=== PATIENT | female | born 1995 ===

== ENCOUNTER 2017-12-21 17:06 | Day surgery (SDC) | payer OTHER ==
[2017-12-21 18:11] VITALS: BMI 30.4
--- NOTE | 2017-12-21 19:11 | PDOC.FPROB ---
FMR OB H&P: HPI - History of Present Illness Chief Complaint: CTX History of Present Illness: This is a 22 yo F presenting today with CTX. Pt has a hx of SAB on ASA and lovenox during this that was stopped last week. Pt endorses CTX since midnight last night that are occuring every 10-20 min. She endorses (+) FM , loss of mucus mixed with blood. Endorses having sexual intercourse earlier today. States she had some swelling in legs that has improved over the last week. The patient denies headache, vision changes, SOB, abdominal pain, fever, NVD. Primary Care Physician: Viktor FMR OB H&P: Current - Care : 6 Para: 1041 Gestational age: 37 - OB Labs Blood type: AB RH: positive HIV: negative RPR: negative HepBsAg: negative Rubella: immune 1 hour gtt: 130 A1c: 4.7 GBS: positive H&H: 9.3/30.2 FMR OB H&P: History - Past Medical History PMH: none - OB History OB History: 1. 04/20/2014 - SAB with D&C 2. 02/17/2015 - Complete SAB 3. 04/20/2015 - Complete SAB 4. 05/15/2016 - placed on lovenox and ASA during 5. 01/12/2017 - complete SAB - Surgical History Sx History: none - Social History Social History: denies tobacco, alcohol or drug use FMR OB H&P: Medications - Current Home Medications: Medication Instructions Recorded Confirmed Type Aspirin [Aspirin Chewable Tablet] 81 mg PO DAILY 12/21/17 12/21/17 History Enoxaparin Sodium [Lovenox] 400 mg IM DAILY 12/21/17 12/21/17 History Ferrous Fumarate/Ascorbic Acid 1 tab PO DAILY 12/21/17 12/21/17 History [Gisela-Sequels 65-25 mg Caplet] Folic Acid 800 mcg PO DAILY 12/21/17 12/21/17 History Enzbdmar03/Iron/Folic/Docusate 1 tab PO DAILY 12/21/17 12/21/17 History [Citranatal Rx] Allergies/Adverse Reactions: Allergies Allergy/AdvReac Type Severity Reaction Status Date / Time No Known Allergies Allergy Verified 12/21/17 17:54 FMR OB H&P: ROS - Review of Systems General: denies: fever/chills Eyes: denies: vision changes, double vision, scotomas, floaters Cardiovascular: denies: chest pain, palpitation Respiratory: denies: shortness of breath Gastrointestinal: denies: abdominal pain, nausea, vomiting, diarrhea, constipation Genitourinary (Female): reports: vaginal bleeding, contractions. denies: incontinence, dysuria, hematuria, polyuria, vaginal discharge, vaginal pressure Musculoskeletal: reports: swelling Neurologic: denies: headache Integumentary: denies: itching, rash FMR OB H&P: Vital Signs - Heart Tones Baseline: 130 Variability: moderate Acceleration: present Deceleration: absent Category: category 1 [place] contractions every: one every 20 min or so FMR OB H&P: Physical Exam - Physical Exam General: NAD, awake, alert and oriented HEENT: normocephalic and atraumatic, EOMI, MMM, grossly normal vision, grossly normal hearing Neck: FROM Chest: non-tender to palpation, no lesions Heart: RRR, normal S1/S2, no murmurs/rubs/gallops General: CTAB, no respiratory distress, good air movement, no wheezing Abdomen: gravid, non-tender, bowel sound present Musculoskeletal: FROM in all four extremities Skin: no rash Lymphatic: no unusual bruising or bleeding, no purpura, no petechia Psychiatric: intact recent and remote memory, good judgement and insight FMR OB H&P: A/P - Problem List (1) High risk due to history of previous obstetrical problem in third trimester Current Visit: Yes Status: Acute Code(s): O09.293 - SUPRVSN OF PREG W POOR REPRODCTV OR OBSTET HX, THIRD TRI (2) IUP (intrauterine ), incidental Current Visit: Yes Status: Acute Code(s): Z34.90 - ENCNTR FOR SUPRVSN OF NORMAL , UNSP, UNSP TRIMESTER Disposition: This is a 22 yo @ 39 wks coming in for CTX. High risk , third trimester - FHT cat 1 - Cervical Check: /-1 @ 1830; soft, posterior - CTX every 20 min - encourage PO hydration - given labor return precautions: if CTX are occuring regularly every 4 min and painful, LOF, or decreased FM told to return to L&D Case discussed with Dr. Cha Discussion: Date/Time: 12/21/171858 This H&P was discussed with [] and [] who agree with the above documentation and plan. Attending Addendum - Attending Addendum Date/Time: 12/21/171940 I personally evaluated the patient and discussed the management with Dr. Enciso I agree with the History, Examination, Assessment and Plan documented above with any addition or exceptions noted below- 22 yo @ 39 weeks presented c/o ctx q20 minutes since last night. Denies any LOF, VB. (+) FM. Afebrile VSS Category 1 FHTs. SVE /-1/post/soft. Holland- ctx q5-10 min. A/p: IUP@ 39 weeks possible latent labor. Patient comfortable. D/c home with labor precautions. F/ U as scheduled for visit.
== END 2017-12-21 20:07 | disposition home or self-care (01) ==
LOC: L&D/OP 17:06
PROVIDERS: ATTEND Student in an Organized Health Care Education/Training Program
DX: O47.1 False labor at or after 37 completed weeks of gestation (principal); Z3A.39 39 weeks gestation of pregnancy
CPT/HCPCS: 99282

== ENCOUNTER 2017-12-22 07:44 | Inpatient (IN) | payer OTHER, SELFPAY ==
[2017-12-22] MEDS ORDERED: Methylergonovine 0.2 MG/ML VIAL IM PRN (08:10)
[2017-12-22] MEDS ORDERED: Lidocaine 1% (PF) 30 ML VIAL SC PRN (08:10)
[2017-12-22] MEDS ORDERED: Acetaminophen/Codeine 30-300mg Tablet PO PRN ×3 (08:10→11:59)
[2017-12-22] MEDS ORDERED: Ibuprofen 800 MG TAB PO PRN (08:10)
[2017-12-22] MEDS ORDERED: Misoprostol 200 MCG TAB PR PRN (08:10)
[2017-12-22] MEDS ORDERED: Misoprostol 200 MCG TAB ONE ×2 (08:11)
[2017-12-22] MEDS ORDERED: Penicillin G Potassium 5 MILL.UNITS in Sodium Chloride 0.9% 100 ML IVPB SCH (08:15)
[2017-12-22] MEDS ORDERED: Promethazine HCl 25 MG/ML VIAL IM PRN ×2 (08:16→11:59)
[2017-12-22] MEDS ORDERED: Ondansetron HCl/PF 4 MG/2 ML Vial IVP PRN ×2 (08:16→11:59)
[2017-12-22] MEDS ORDERED: DISCONTINUE ALL PREVIOUS NARCOTICS FS SCH (08:30)
[2017-12-22] MEDS ORDERED: Bupivacaine 0.5% 20 ML, fentaNYL Citrate/PF 400 MCG in Sodium Chloride 0.9% 72 ML EPIDURAL SCH (08:30)
[2017-12-22] MEDS ORDERED: Lactated Ringer's 1,000 ML IV SCH (08:30)
[2017-12-22 08:31] VITALS: BMI 32.9
--- NOTE | 2017-12-22 08:31 | PDOC.FPROB ---
Addendum entered and electronically signed by Lay Nash MD 12/22/17 14: 02: 22yo @ 39.1 weeks with history of multiple SAB, MTHFR, consanguinuity, who presents in active labor. Pt noted to be intact with an anterior lip on SVE. History reviewed. GBS +, s/p PCN x 1. Labs pending. Pt requesting epidural. Lay Nash MD PGY-3 Original Note: FMR OB H&P: HPI - History of Present Illness Chief Complaint: Contractions Indentification: 22 yo @ 39.1 wks by 8.1wk sono (ADRIAN 12/28/17) History of Present Illness: Pt is 22 yo @ 39.1 wks by 8.1wk sono (12/28/17). Pt presents with contractions every 2-3 minutes that started at 3 AM, no LOF, no vaginal bleeding. Baby is moving well. Pt is GBS +. Hx of MTHFR on ASA and lovenox ( that was discontinued one week ago). FMR OB H&P: Current - Care : 6 Para: 1041 Gestational age: 39.1 Due date: 12/28/17 Dating Criteria: 8.1 wk sono Course/Complications: Anemia of GBS+ MTHFR on ASA and lovenox, discontinued 1 wk ago - OB Labs Blood type: AB RH: positive Antibody Screen: negative HIV: negative RPR: negative HepBsAg: negative Rubella: immune 1 hour gtt: 130 A1c: 4.7 GBS: positive H&H: 9.3/30.2 on 05/04/17; 13/38.9 12/15/17 Additional labs: TSH: 06/28/17: 2.55 Repeat: 5.560 on 10/11/17 - First Trimester Ultrasound First trimester: sIUP, yolk sac visualized, cardiac activity present FHR 174 - Anatomy Survey Anatomy survey: Placenta: posterior, right. 3 vessel cord. Normal placental insertion. No abnormalities noted. 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 04/20/2014 - SAB with D&C 2. 02/17/2015 - Complete SAB 3. 04/20/2015 - Complete SAB 4. 05/15/2016 - placed on lovenox and ASA during 5. 01/12/2017 - complete SAB - Surgical History Sx History: none - Social History Social History: denies alcohol, tobacco, or drug use. FMR OB H&P: Medications - Current Home Medications: Medication Instructions Recorded Confirmed Type Aspirin [Aspirin Chewable Tablet] 81 mg PO DAILY 12/21/17 12/22/17 History Enoxaparin Sodium [Lovenox] 400 mg IM DAILY 12/21/17 12/22/17 History Ferrous Fumarate/Ascorbic Acid 1 tab PO DAILY 12/21/17 12/22/17 History [Gisela-Sequels 65-25 mg Caplet] Folic Acid 800 mcg PO DAILY 12/21/17 12/22/17 History Rtrixbhf15/Iron/Folic/Docusate 1 tab PO DAILY 12/21/17 12/22/17 History [Citranatal Rx] Allergies/Adverse Reactions: Allergies Allergy/AdvReac Type Severity Reaction Status Date / Time No Known Allergies Allergy Verified 12/21/17 17:54 FMR OB H&P: ROS - Review of Systems Genitourinary (Female): reports: vaginal pain, contractions, vaginal pressure FMR OB H&P: Vital Signs - Heart Tones Baseline: 150 Variability: moderate Acceleration: present Deceleration: absent Category: category 1 [place] contractions every: 2-3 minutes FMR OB H&P: Physical Exam - Physical Exam General: NAD, awake, alert and oriented HEENT: normocephalic and atraumatic, PERRLA, MMM, normal nasal mucosa, oropharynx clear Neck: supple, no LAD Breast: symmetric Heart: RRR, normal S1/S2, no murmurs/rubs/gallops General: CTAB, no respiratory distress, good air movement, no wheezing Abdomen: soft Musculoskeletal: pulses present, FROM in all four extremities Skin: no rash, good tugor Psychiatric: intact recent and remote memory, normal mood and affect - Pelvic Exam Vulva: normal hair distribution, appropriate joselin stage SVE: ant lip/100/high FMR OB H&P: A/P - Problem List (1) IUP (intrauterine ), incidental Current Visit: No Status: Acute Code(s): Z34.90 - ENCNTR FOR SUPRVSN OF NORMAL , UNSP, UNSP TRIMESTER Discussion: Date/Time: 12/22/17830 22 yo @ 39.1 wks by 8.1wk livier, presenting in labor. sIUP -SVE shows patient has anterior lip -FHTs Cat 1, cxn every 2-3 minutes -Patient wants epidural -Plan for -GBS + : needs intrapartum penicillin MTHFR on ASA and lovenox -Discontinued 1 wk prior Anemia of -CBC wnl at this time This H&P was discussed with Dr. Hoang who agree with the above documentation and plan. Attending Addendum - Attending Addendum Date/Time: 12/23/17845 I personally evaluated the patient and discussed the management with Dr. Lo and Dr. Nash I agree with the History, Examination, Assessment and Plan documented above with any addition or exceptions noted below. 22 yo female at 39.1 wks by 8.1wk livier admitted for active labor. Patient with contractions starting at 0300 this morning. No LOF, VB, or abnormal discharge. Requesting epidural for pain control but likely not able to receive due to progression of labor. SVE 10/100/0. Intact. 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 Stopped 1 week ago. No hx of maternal VTEs. MFM recommends restarting Lovenox 4 hour pp. Continue labor management. Has now received on loading dose of PCN G. Would like Dony to follow infant in hospital. Irlanda
[2017-12-22 08:35] LABS: Hemoglobin 13.7 g/dL (12.0-16.0); Mean Corpuscular HGB CONC 34.8 g/dL (32.0-36.0); Mean Corpuscular Hemoglobin 29.9 pg (27.0-31.0); Mean Platelet Volume 9.6 fL (7.4-10.4); Platelet Count 126 thou/uL (130-400); RBC Distribution Width 12.4 % (11.5-14.5); Red Blood Cell (RBC) Count 4.58 mill/uL (4.20-5.40); White Blood Cell (WBC) Count 11.5 thou/uL (4.8-10.8)
[2017-12-22] MEDS ORDERED: NS / Oxytocin 40 units/1000ml 1,000 ML ONE (08:58)
[2017-12-22] MEDS ORDERED: Lidocaine 1% (PF) 30 ML VIAL ONE (08:58)
[2017-12-22 09:12] LABS: HBSAg Index 0.27 S/CO (0-0.99); Hep B Surf Ag Non-Reactive S/CO (NonReactive)
[2017-12-22 09:14] LABS: Syphilis Antibody Nonreactive (Nonreactive); Syphilis Antibody Index 0.03 S/CO (<1.00 Non-Reactive)
[2017-12-22] MEDS: NS / Oxytocin 40 units/1000ml 1,000 ML IV PRN ×2 (09:16→09:48)
[2017-12-22] MEDS ORDERED: Fentanyl 100 MCG/2 ML VIAL ONE (09:22)
[2017-12-22] MEDS ORDERED: Fentanyl 100 MCG/2 ML VIAL SLOW IVP PRN (10:12)
[2017-12-22] MEDS ORDERED: Fentanyl 100 MCG/2 ML VIAL SLOW IVP SCH (10:15)
[2017-12-22] MEDS ORDERED: NS / Oxytocin 40 units/1000ml 1,000 ML IV SCH (11:59)
[2017-12-22] MEDS ORDERED: Bisacodyl 10 MG SUPP PR PRN (11:59)
[2017-12-22] MEDS ORDERED: Milk Of Magnesia 30 ML UDCUP PO PRN (11:59)
[2017-12-22] MEDS ORDERED: Adacel (T-DAP) 0.5 ML VIAL IM ONE (11:59)
[2017-12-22] MEDS ORDERED: Lanolin Ointment 7 GM TUBE TOP PRN (11:59)
[2017-12-22] MEDS ORDERED: Preparation H Ointment 28 GM TUBE PR PRN (11:59)
--- NOTE | 2017-12-22 12:06 | PDOC.OPDEL ---
OB Operative/Delivery Note Delivery Dr/Surgeon: Viktor Assist: Adán Lo Pre-Delivery Diagnosis: active labor Procedure/Post Delivery Dx: spontaneous vaginal delivery Anesthesia: local - Additional Findings/Plan Placenta delivered: spontaneous Repaired Obstetrical Laceration: 2nd degree Estimated blood loss: EBL 565 ml Compilations/Other Findings: Vaginal Delivery: Delivering Physician Viktor, assisted by Adán lo Procedure: Spontaneous Vaginal Delivery Anesthesia: pudendal block, Local for Repair QBL: 565 ml Pre-op Diagnosis: 1. Term intrauterine in labor 2. Hx of MTHFR, consanguinity, GBS + Post-op Diagnosis: 1. Term intrauterine , delivered 2. same as above Indications: A 22 y/o female presents in active labor Delivery Note: This is 22yo F @ 39.1 wks who delivered a viable M at 0909_. Following an uneventful antepartum course, a vigorous male was delivered over an intact perineum in the MELVIN position. Anterior Shoulder and then remainder of the body delivered. No nuchal cord. The head was held down and mouth and nares were bulb suctioned. Cord clamped after delayed cord clamping and cut and cord blood collected. Placenta delivered intact in the [place] presentation with a 3 vessel cord noted. Fundal massage was performed and the fundus was firm. The cervix and vagina were inspected. A bilateral posterior sulcus lac, 2nd degree perineal laceration with intact posterior vaginal wall with a right vaginal side wall extension were note. They were repaired with 2-0 and 3-0 vicryl in the usual fashion with good approximation and hemostasis after a local anesthetic lidocaine was injected at site. Infant went to nursery in good condition for routine care. Apgars were _9_/_9_ at 1 & 5 minutes, respectively. Patient tolerated delivery and went to after routine recovery/care. Post delivery plan: routine recovery <Velvet Lo - Last Filed: 12/22/17 13:27> - Additional Findings/Plan Compilations/Other Findings: I was present and participated in the above documented procedure. Normal . Male infant delivered in OA position. Pudendal for anaesthesia and local for repair. Lacerations were complex including bilateral posterior sulcus tears with 2nd degree perineal tear however midline of posterior vaginal wall remained intact. Extensions into bilateral vaginal side pringle. Repaired with 2- 0 Vycrl in usual fashion. Cytotec 800 mg ME given ppx due to brisk bleeding. Patient unable to tolerate bimanual massage. Routine pp care. Will monitor for 48 hours. Irlanda <Adwoa Hoang - Last Filed: 12/23/17 08:57>
[2017-12-22] MEDS: Acetaminophen/Codeine 30-300mg Tablet PO PRN (12:18)
[2017-12-22] MEDS ORDERED: Penicillin G 2.5 MILL.units 2.5 MILL.UNITS in Premix Bag 1 BAG IVPB SCH (12:30)
[2017-12-22] MEDS: Ferrous Sulfate 325 MG TAB PO SCH (18:13)
[2017-12-22] MEDS: Ibuprofen 800 MG TAB PO SCH ×2 (18:13→22:34)
[2017-12-22] MEDS: Docusate Calcium (SURFAK) 240 MG CAP PO SCH (22:34)
[2017-12-22] MEDS: Enoxaparin Sodium 40 MG/0.4 ML SYRINGE SC SCH (22:35)
[2017-12-23] MEDS: Acetaminophen/Codeine 30-300mg Tablet PO PRN ×2 (01:27→16:47)
[2017-12-23] MEDS: Ibuprofen 800 MG TAB PO SCH ×3 (05:42→21:44)
[2017-12-23 05:56] LABS: Hemoglobin 11.2 g/dL (12.0-16.0); Mean Corpuscular HGB CONC 34.4 g/dL (32.0-36.0); Mean Corpuscular Hemoglobin 29.7 pg (27.0-31.0); Mean Corpuscular Volume 86.4 fL (78.0-98.0); Mean Platelet Volume 9.7 fL (7.4-10.4); Platelet Count 123 thou/uL (130-400); RBC Distribution Width 12.2 % (11.5-14.5); Red Blood Cell (RBC) Count 3.78 mill/uL (4.20-5.40); White Blood Cell (WBC) Count 16.3 thou/uL (4.8-10.8)
--- NOTE | 2017-12-23 08:59 | PDOC.OBPPN ---
FMR OB PN: Subj - Interval History Hospital Day: 2 Day: 1 Chief Complaint: none Indentification: 22 yo female s/p on 12/22/17 at 0909 Interval History: Doing well. Pain controlled. Ambulation. Lochia mild. No vaginal edema. FMR OB PN: Obj - Maternal Vital signs: BP: 94/50 HR: 74 regular RR: 18 Tmax: 98.2 Pox: 99% on RA - Urine output I&O: 12/22/17 12/23/17 12/24/17 06:59 06:59 06:59 Output Total 10 Balance -10 - Lochia Lochia: Mild and appropriate. Less than period at this time per patient. - Pain Management Pain scale: 0 Intervention: oral medication FMR OB PN: Exam - Physical Exam General: NAD, awake, alert and oriented HEENT: normocephalic and atraumatic, PERRLA, EOMI, MMM, conjunctiva clear, grossly normal hearing Neck: supple, FROM Chest: non-tender to palpation Breast: symmetric, non-tender Heart: RRR, normal S1/S2, no murmurs/rubs/gallops, pulses present, no edema General: CTAB, no respiratory distress, good air movement, no rales/rhonchi, no wheezing, no retractions Abdomen: soft, gravid, fundus(cm) (-1 below umbilicus), non-tender, bowel sound present, no hernias Musculoskeletal: normal gait and station, FROM in all four extremities Neurological: cranial nerves II through XII intact Skin: no rash, good tugor Psychiatric: good judgement and insight, normal mood and affect - Pelvic Exam : perineal incision/laceration healing well, sutures intact, no edema FMR OB PN: Data - Labs Lab results: Laboratory Results - last 24 hr 12/22/17 12/22/17 12/22/17 08:20 08:21 08:21 WBC RBC Hgb Hct MCV MCH MCHC RDW Plt Count MPV Syphilis IgG/IgM Ab Nonreactive Hep Bs Antigen Non-Reactive Blood Type AB POSITIVE Antibody Screen NEGATIVE 12/23/17 05:19 WBC 16.3 H RBC 3.78 L Hgb 11.2 L Hct 32.6 L MCV 86.4 MCH 29.7 MCHC 34.4 RDW 12.2 Plt Count 123 L MPV 9.7 Syphilis IgG/IgM Ab Hep Bs Antigen Blood Type Antibody Screen FMR OB PN: A/P - Problem List (1) IUP (intrauterine ), incidental Current Visit: Yes Status: Acute Code(s): Z34.90 - ENCNTR FOR SUPRVSN OF NORMAL , UNSP, UNSP TRIMESTER Assessment and Plan: s/p on 12/22/17. Multiple vaginal lacerations. Healing well. Pain controlled with PO meds. and supplementing with formula yesterday due to fatigue. Continue routine pp care. Monitor for 48 hours. 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 (3) History of recurrent miscarriages Current Visit: Yes Status: Acute Code(s): N96 - RECURRENT LOSS Assessment and Plan: Unsure complete etiology. Presumed unidentified antibody/antigen. Able to carry to term with ppx Lovenox and ASA. Will continue Lovenox ppx dose until ambulating well. No hx of maternal VTEs. Also hx of consanguinity. (4) GBS carrier Current Visit: Yes Status: Acute Code(s): Z22.330 - CARRIER OF GROUP B STREPTOCOCCUS Assessment and Plan: Incomplete treatment. Monitor for 48 hours. Uterus nontender. Disposition: Continue routine pp care today. Monitor for 48 hours. Signature: Irlanda
[2017-12-23] MEDS: Docusate Calcium (SURFAK) 240 MG CAP PO SCH ×2 (09:18→21:44)
[2017-12-23] MEDS: Prenatal Vitamin 1 TAB PO SCH (09:18)
[2017-12-23] MEDS: Ferrous Sulfate 325 MG TAB PO SCH (09:20)
[2017-12-23] MEDS: Enoxaparin Sodium 40 MG/0.4 ML SYRINGE SC SCH (21:45)
[2017-12-24] MEDS: Ibuprofen 800 MG TAB PO SCH (06:37)
[2017-12-24 08:42] VITALS: BP 111/73; TEMP 97.9
[2017-12-24] MEDS: Docusate Calcium (SURFAK) 240 MG CAP PO SCH (08:42)
[2017-12-24] MEDS: Ferrous Sulfate 325 MG TAB PO SCH (08:42)
[2017-12-24] MEDS: Prenatal Vitamin 1 TAB PO SCH (08:42)
--- NOTE | 2017-12-24 09:12 | PDOC.OBPPN ---
FMR OB PN: Subj - Interval History Hospital Day: 3 Day: 2 Chief Complaint: None Indentification: 22 yo female s/p on 12/22/17 doni 0909 Interval History: Doing well. Still using formula. Starting to breast feed. Pain controlled. FMR OB PN: Obj - Maternal Vital signs: BP: [11/73] HR: [65 regular] RR: [18] Tmax: [97.9] Pox: [98]% on [room air] - Urine output I&O: 12/23/17 12/24/17 12/25/17 06:59 06:59 06:59 Output Total 10 Balance -10 - Lochia Lochia: Appropriate. Normal. Mild. No clots. - Pain Management Pain scale: 0 Intervention: oral medication (NSAIDs) FMR OB PN: Exam - Physical Exam General: NAD, awake, alert and oriented HEENT: normocephalic and atraumatic, PERRLA, EOMI, MMM, conjunctiva clear, grossly normal vision, grossly normal hearing Neck: supple, FROM Chest: non-tender to palpation, no lesions Breast: symmetric, no skin changes, no erythema Heart: RRR, normal S1/S2, no murmurs/rubs/gallops, pulses present, no edema General: CTAB, no respiratory distress, good air movement, no rales/rhonchi, no wheezing, no retractions Abdomen: soft, gravid, fundus(cm) (-2 below the umbilicus), non-tender, bowel sound present Musculoskeletal: normal gait and station Neurological: cranial nerves II through XII intact Skin: no rash, good tugor Lymphatic: no unusual bruising or bleeding Psychiatric: good judgement and insight, normal mood and affect - Pelvic Exam : perineal incision/laceration healing well, sutures intact, no discharge, no edema, normal lochia FMR OB PN: Data - Labs Lab results: No new labs today. FMR OB PN: A/P - Problem List (1) IUP (intrauterine ), incidental Current Visit: Yes Status: Acute Code(s): Z34.90 - ENCNTR FOR SUPRVSN OF NORMAL , UNSP, UNSP TRIMESTER Assessment and Plan: s/p . Now completing all milestones pp. Ok to be d/c to home today with . Follow up in 2 wks at [facility]. Pain controlled with NSAIDs. Now starting to breast feed. has evaluated. Breast fed last child for 6 month pp. No complaints. Natural family planning for contraception. 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 (3) History of recurrent miscarriages Current Visit: Yes Status: Acute Code(s): N96 - RECURRENT LOSS Assessment and Plan: Will continue Lovenox for 2 wks ppx per [facility] recommendations. (4) GBS carrier Current Visit: Yes Status: Acute Code(s): Z22.330 - CARRIER OF GROUP B STREPTOCOCCUS Assessment and Plan: Inadequate treatment. Now s/p 48 hours. doing well. Disposition: Ok to d/c to home. Pelvic rest x 6 wks. NSAIDs for pain control. Follow up with me at [facility] in 2 wks. Continue Lovenox ppx until 2 wk pp visit. Signature: Irlanda
== END 2017-12-24 14:21 | disposition home or self-care (01) | DRG 768 ==
LOC: L&D/OP 07:44 → L&D 08:30 → 3SW 16:53
PROVIDERS: ADMIT Student in an Organized Health Care Education/Training Program; ATTEND Student in an Organized Health Care Education/Training Program
PROC: 10E0XZZ Delivery of Products of Conception, External Approach (ICD-10-PCS; principal; 2017-12-22)
PROC: 0UQG0ZZ Repair Vagina, Open Approach (ICD-10-PCS; 2017-12-22)
PROC: 0KQM0ZZ Repair Perineum Muscle, Open Approach (ICD-10-PCS; 2017-12-22)
DX: O99.284 Endocrine, nutritional and metabolic diseases complicating childbirth (principal); Z37.0 Single live birth; E72.12 Methylenetetrahydrofolate reductase deficiency; O99.02 Anemia complicating childbirth; O70.1 Second degree perineal laceration during delivery; O99.824 Streptococcus B carrier state complicating childbirth; Z84.3 Family history of consanguinity; Z3A.39 39 weeks gestation of pregnancy; O70.0 First degree perineal laceration during delivery; O26.23 Pregnancy care for patient with recurrent pregnancy loss, third trimester
CPT/HCPCS: 36415; 85027; 86780; 86850; 86900; 86901; 87340; 88307; 90471; 90686; 99282; 99285; G0008; J1650; J2001; J2540; J3010; J3490; J7050

== ENCOUNTER 2019-06-08 11:05 | Inpatient (IN) | payer MEDICAID, OTHER ==
[2019-06-08] MEDS ORDERED: Ondansetron PF 4 MG/2 ML Vial IVP PRN (11:08)
[2019-06-08] MEDS ORDERED: hydrALAZINE 20 MG/ML VIAL SLOW IVP PRN (11:08)
[2019-06-08] MEDS ORDERED: Promethazine HCl 25 MG/ML VIAL IM PRN (11:08)
[2019-06-08] MEDS ORDERED: Calcium Gluc 4.6 MEQ/10 ML (100 MG/ML) SLOW IVP PRN ×2 (11:13→11:33)
[2019-06-08] MEDS ORDERED: Magnesium Sulfate 20 gm/500 ml 20 GM/500 ML BAG IVPB SCH (11:15)
[2019-06-08] MEDS ORDERED: Betamet Acet/Betamet Na Ph 30 MG/5 ML VIAL IM SCH (11:15)
[2019-06-08] MEDS ORDERED: Magnesium Sulfate 20 gm/500 ml 20 GM/500 ML BAG ONE (11:18)
[2019-06-08] MEDS ORDERED: Betamet Acet/Betamet Na Ph 30 MG/5 ML VIAL ONE (11:18)
[2019-06-08] MEDS ORDERED: Sodium Chloride 0.9% 1,000 ML IV SCH (11:30)
[2019-06-08 11:33] LABS: Mean Corpuscular HGB CONC 34.2 g/dL (32.0-36.0); Mean Corpuscular Volume 78.9 fL (78.0-98.0); PTT 30.8 SEC (22.9-36.1); Prothrombin Time 12.7 SEC (12.0-14.7); Red Blood Cell (RBC) Count 4.06 mill/uL (4.20-5.40)
[2019-06-08] MEDS ORDERED: Polyethylene Glycol 3350 17 GM Packet PO PRN (11:34)
[2019-06-08] MEDS ORDERED: Acetaminophen 325 MG TAB PO PRN (11:34)
[2019-06-08] MEDS ORDERED: hydrOXYzine 25 MG TAB PO PRN (11:37)
[2019-06-08] MEDS ORDERED: Benzonatate 100 MG CAP PO PRN (11:37)
[2019-06-08] MEDS ORDERED: Magnesium Sulfate 20 GM/WATER 500 ML BAG IVPB SCH (11:45)
[2019-06-08 11:46] LABS: Anion Gap 11 mmol/L (10-20); BUN (Urea Nitrogen) Less than 4 mg/dL (7.0-18.7); Calc. Creatinine Clearance 0 mL/min (70-130); Carbon Dioxide 20 mmol/L (22-29); Chloride 109 mmol/L (98-107); Estimated GFR-MDRD Greater than 90; Glucose 93 mg/dL (70-105); Potassium 3.3 mmol/L (3.5-5.1); Sodium 137 mmol/L (136-145)
[2019-06-08 11:53] LABS: Mean Platelet Volume 10.6 fL (7.4-10.4); Platelet Count 92 thou/uL (130-400); RBC Distribution Width 13.9 % (11.5-14.5)
[2019-06-08 12:05] LABS: Syphilis Antibody Nonreactive (Nonreactive); Syphilis Antibody Index 0.04 S/CO (<1.00 Non-Reactive)
--- NOTE | 2019-06-08 12:09 | PDOC.FPRHP ---
- History of Present Illness Chief Complaint: vaginal bleeding - Allergies/Adverse Reactions Allergies Allergy/AdvReac Type Severity Reaction Status Date / Time No Known Allergies Allergy Verified 06/08/19 12:18 - Home Medications Medication Instructions Recorded Confirmed Type Myxfeshz64/Iron/Folic/Docusate 1 tab PO DAILY 12/21/17 06/08/19 History [Citranatal Rx] Enoxaparin Sodium [Lovenox] 40 mg SC 2100 syringe 12/24/17 Rx Aspirin 1 tab PO DAILY 06/08/19 06/08/19 History - History PMHx: PSHx: FHx: Social: - Vital signs BP: [] HR: [] RR: [] Tmax: [] Pox: []% on [] Wt: [] FMR H&P: Results - Labs Result Diagrams: 06/08/19 11:13 06/08/19 11:13 Lab results: WBC 9.0 thou/uL (4.8-10.8) 06/08/19 11:13 Hgb 11.0 g/dL (12.0-16.0) L 06/08/19 11:13 Hct 32.0 % (36.0-47.0) L 06/08/19 11:13 MCV 78.9 fL (78.0-98.0) 06/08/19 11:13 Plt Count 92 thou/uL (130-400) L 06/08/19 11:13 Sodium 137 mmol/L (136-145) 06/08/19 11:13 Potassium 3.3 mmol/L (3.5-5.1) L 06/08/19 11:13 Chloride 109 mmol/L (98-107) H 06/08/19 11:13 Carbon Dioxide 20 mmol/L (22-29) L 06/08/19 11:13 BUN Less than 4 mg/dL (7.0-18.7) L 06/08/19 11:13 Creatinine 0.55 mg/dL (0.6-1.1) L 06/08/19 11:13 Glucose 93 mg/dL (70-105) 06/08/19 11:13 Calcium 8.0 mg/dL (7.8-10.44) 06/08/19 11:13 FMR H&P: Upper Level - Plan Date/Time: 06/08/19 1208 I, [], have evaluated this patient and agree with findings/plan as outlined by manager intern resident. Pertinent changes/additions are listed here.
[2019-06-08 12:12] LABS: HBSAg Index 0.17 S/CO (0-0.99); Hep B Surf Ag Non-Reactive S/CO (NonReactive)
[2019-06-08 12:26] VITALS: BMI 31.2
[2019-06-08] MEDS: Lactated Ringer's 1,000 ML IV SCH ×3 (12:45→19:59)
--- NOTE | 2019-06-08 13:28 | PDOC.FPROB ---
FMR OB H&P: HPI - History of Present Illness Chief Complaint: vaginal bleeding Indentification: @ 31.5 WGA (ADRIAN 08/05/19) History of Present Illness: 24YO @ 35.1 WGA by LMP c/w 9.1 week sono with a known placenta previa following with [facility] who presents to L&D for sudden onset vaginal bleeding earlier this AM at home. Patient reports that @ ~11:00 she felt fluid leaking from her vagina while laying in bed & looked and saw blood. Then went to the bathroom and sat on the toilet & saw a large gush of blood with clots. Reports she has been taking lovenox and ASA Q4days despite both PCP and MFM recs to d/c it. Reports she was started on it during her 1T for recurrent SABs & FH of consanguinuity (spouse is first cousin). Reports regular movement and denies any LOF, vaginal d/c or recent intercourse or trauma. No reported h/o infections this . Reportedly last saw MF ~2 weeks ago for routine monitoring. 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, varicella non-immune - OB Labs Blood type: AB RH: positive Antibody Screen: negative HIV: negative RPR: negative HepBsAg: negative Rubella: immune Quad screen: negative Urine drug screen: not done Gonorrhea: negative Chlamydia: negative Pap Smear: NILM in 2017 A1c: 4.9 on 01/24/19 GBS: unknown H&H: on admission Platelets: 92 Additional labs: Quant gold neg on 01/24/19 varicella non-immune on 01/24/19 FMR OB H&P: History - Past Medical History PMH: None - OB History OB History: #1 SAB @ 6 weeks w/ D&C #2 complete SAB @ 13 WGA #3 complete SAB @ 5 WGA #4 term @ 39 WGA #5 complete SAB @ 6 WGA s/p misoprostol #6 term @ 39 WGA w/ complex vaginal laceration & PP atrophic vaginitis - SURGICAL ASSISTANT CERTIFIED History SURGICAL ASSISTANT CERTIFIED History: No h/o STIs. Pap NILM on 12/09/16. - Surgical History Sx History: D&C x1 in 2015 - Social History Social History: No TAD. Lives at home with , daughter & son. - Family History Family History: Father: DMII FMR OB H&P: Medications - Current Home Medications: Medication Instructions Recorded Confirmed Type Gkjasolb03/Iron/Folic/Docusate 1 tab PO DAILY 12/21/17 06/08/19 History [Citranatal Rx] Enoxaparin Sodium [Lovenox] 40 mg SC 2100 syringe 12/24/17 Rx Aspirin 1 tab PO DAILY 06/08/19 06/08/19 History Allergies/Adverse Reactions: Allergies Allergy/AdvReac Type Severity Reaction Status Date / Time No Known Allergies Allergy Verified 06/08/19 12:18 FMR OB H&P: ROS - Review of Systems General: reports: fever/chills Eyes: denies: vision changes Cardiovascular: reports: palpitation. denies: chest pain Respiratory: reports: cough Gastrointestinal: denies: abdominal pain, nausea, vomiting Genitourinary (Female): reports: vaginal bleeding. denies: dysuria, vaginal discharge, vaginal pain, contractions, vaginal pressure Neurologic: reports: other (no dizziness). denies: syncope FMR OB H&P: Vital Signs - Maternal Vital signs: Vital Signs - First Documented Temp Pulse Resp BP Pulse Ox 98.8 F 130 H 20 110/55 L 100 06/08/19 11:12 06/08/19 11:12 06/08/19 11:12 06/08/19 11:12 06/08/19 11:12 - Heart Tones Baseline: 140 Variability: moderate Acceleration: present Deceleration: absent [place] contractions every: no contractions noted FMR OB H&P: Physical Exam - Physical Exam General: NAD, awake, alert and oriented HEENT: MMM, conjunctiva clear, grossly normal vision, grossly normal hearing Neck: supple, FROM Heart: other (tachycardic) General: no respiratory distress Abdomen: gravid Musculoskeletal: FROM in all four extremities Neurological: cranial nerves II through XII intact, sensation to pain,touch and proprioception grossly normal, no focal deficit Skin: no rash, good tugor, no jaundice Lymphatic: no unusual bruising or bleeding, no purpura, no petechia, no LAD Psychiatric: intact recent and remote memory, good judgement and insight, normal mood and affect - Pelvic Exam Vulva: normal hair distribution, appropriate joselin stage, no masses, no lesions , no discharge Deviation from normal: dried blood on labia Deviation from normal: trace amount of blood in posterior fornix but no active bleeding; mucus Presentation: vertex FMR OB H&P: Results - Labs Lab results: Laboratory Results - last 24 hr 06/08/19 06/08/19 06/08/19 11:13 11:13 11:13 WBC RBC Hgb Hct MCV MCH MCHC RDW Plt Count MPV PT INR APTT Fibrinogen Sodium Potassium Chloride Carbon Dioxide Anion Gap BUN Creatinine Estimated GFR (MDRD) Glucose Calcium Syphilis IgG/IgM Ab Nonreactive Hep Bs Antigen Non-Reactive Blood Type AB POSITIVE Ab Screen Tube Method NEGATIVE Crossmatch See Detail 06/08/19 06/08/19 06/08/19 11:13 11:13 11:13 WBC 9.0 RBC 4.06 L Hgb 11.0 L Hct 32.0 L MCV 78.9 MCH 27.0 MCHC 34.2 RDW 13.9 Plt Count 92 L MPV 10.6 H PT 12.7 INR 1.0 APTT 30.8 Fibrinogen 438 Sodium 137 Potassium 3.3 L Chloride 109 H Carbon Dioxide 20 L Anion Gap 11 BUN Less than 4 L Creatinine 0.55 L Estimated GFR (MDRD) Greater than 90 Glucose 93 Calcium 8.0 Syphilis IgG/IgM Ab Hep Bs Antigen Blood Type Ab Screen Tube Method Crossmatch FMR OB H&P: A/P - Problem List (1) Vaginal bleeding in patient after first trimester with placenta previa Current Visit: Yes Status: Acute Code(s): O44.31 - PARTIAL PLACENTA PREVIA WITH HEMORRHAGE, FIRST TRIMESTER (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 Code(s): Z84.3 - FAMILY HISTORY OF CONSANGUINITY (3) Maternal varicella, non-immune Current Visit: Yes Status: Chronic Code(s): O09.899 - SUPERVISION OF OTHER HIGH RISK PREGNANCIES, UNSP TRIMESTER; Z28.3 - UNDERIMMUNIZATION STATUS (4) Placenta previa antepartum in third trimester Current Visit: Yes Status: Chronic Code(s): O44.03 - COMPLETE PLACENTA PREVIA NOS OR WITHOUT HEMOR, THIRD TRI (5) History of recurrent miscarriages Current Visit: No Status: Chronic Code(s): N96 - RECURRENT LOSS (6) History of D&C Current Visit: Yes Status: Acute Code(s): Z98.890 - OTHER SPECIFIED POSTPROCEDURAL STATES Disposition: 24YO @ 31.5 WGA by LMP c/w 9.1 week sono who presents to L&D for sudden onset vaginal bleeding with a known history of placenta previa. #Vaginal bleeding @ 31.5 WGA w/ known placenta previa: - FHTs reassuring and no contractions noted on monitor. Also no active bleeding on external exam on presentation. Sterile speculum exam also notable only for small amount of blood in posterior fornix but cervix appeared closed w/ no active bleeding noted. STAT bedside sono showed cervical length of 3.1-3.6cm. Official report pending. - Will get STAT labs including CBC, BMP, PT, PTT, & fibrinogen. - Due to prematurity and possibility of STAT C/S for delivery if fetus or mother should become unstable, will administer betamethasone 12mg IM Q24 hours x 2 doses & IV Mg x 6 hours minimum. - VP3, GBS & swab for ferning collected on admission with sterile spec exam. Will address PRN based on results. Unable to perform amnisure 2/2 bleeding & blood in vault which would interfere w/ test results but no pooling noted on exam. Urine Cx also pending from cath sample. - [address] in place & will give 1L bolus of NS & then continue IVFs w/ LR @ 150mL/hr. 2U PRBCs ordered to be typed & crossed on standby. - strict bedrest & NPO while on Mg therapy. - Q6H progress notes to closely monitor maternal & status closely. #PUI for COVID-19: - Patient & report travels for work & has recently travelled to both [place] & [place] [employer] & both have developed flu-like symptoms since his return home with cough & subjective fever. -Flu & COVID-19 swabs collected. Per nursing staff COVID-19 swab will not be sent off for testing until 06/10/19 when next batch will be taken to [place]. Droplet isolation precautions pending those results. #Thrombocytopenia: - Plts 92 on admission. Nl w/ IOB labs. Will review 3T labs level. Holding all antiplatelets & anticoagulation in setting of acute bleeding. Repeat H/H @ 1800 & in the AM. Will continue to monitor. #posterior placenta previa: - Aware & noted on STAT bedside sono but official sono reports pending. See plan for #1. #FH consanguinuity: - Aware, negative quad screen & following with MFM. 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 Will d/ c while inpatient. Following w/ MFM. #varicella non-immune - Noted on IOB labs. Will vaccinate post-. h/o D&C x1: - Aware, done after 1st w/ SAB @ ~6 WGA Dispo: Will admit to L&D on droplet isolation for IM steroids & Mg therapy & close monitoring overnight. Discussion: Date/Time: 06/08/19 1323 This H&P was discussed with Dr. Hoang who agrees with the above documentation and plan. Addendum - Attending - Attending Attestation Date/Time: 06/08/19 1901 I personally evaluated the patient and discussed the management with Dr. Cross I agree with the History, Examination, Assessment and Plan documented above with any addition or exceptions noted below. 24 yo female at 31.5 wks by LMP/9.4 wk sono present for vaginal bleeding. Patient reports bleeding started at 11:00 today. No prior bleeds. No trauma. Nothing per vagina. Blood was noted on clothing and bedding and then large " gush with clots" in toliet. Patient denies dizziness, palpitations, CP, SOB, ctx , LOF. +FM. has been complicated by multiple miscarriages and consanguinity. Has been on lovenox and ASA with 2 prior term pregnancies and wished to continue during this . Was advized to stop after 1T once previa dx. Patient has been continuing lovenox 40 mg every 4th day. Reportedly stopped ASA 1 month ago. Has been seeing MFM regularly. Medical record reviewed. Labs reviewed. Noted to have thrombocytopenia. Coags WNL. H&H stable. On ROS patient reported 3 days of cough, N/V, body aches. reports he travels alot for his job. Has been in [place]. He reports 5 days of body aches, subjective fever, cough, fatigue. 1. sIUP: Chart reviewed. GBS swab today. EFW 1244 g on 05/23/19 (14% by [place]). Awaiting repeat today. 2. Bleeding previa: Sentinal bleed. Has stablized for now. Admit. Start mag for neuroprotection. Will continue to 6 hours and if no evidence for need for deliver will d/c. Continuous monitoring for at least 24 hours. BPP was 8/ 8. TVUS showed posterior previa. Hematoma noted. No bienvenido evidence for abnormal adhesion of placenta. Spoke with MFM. No evidence. FLM steroids started. Continue IVFs. Place lazo for bed rest. Laborist notified. Will need assistance for surgery due to occult complications with previa. 3. Recurrent miscarriages: Stop ASA and lovenox. Risk factors for bleed. 4. Suspected COVID19 PUI: Will test. Did not completely meet guidelines but high suspecion. Called to get ok from ID to test. He agreed. Isolation precautions placed. Treat symptoms. Flu swab added. No respiratory issues. Lungs clear. Will hold on CXR at this time. Cough and vomitting possible risk factors for bleeding depending on frequency and severity. Unsure of COVID19 risk factor. 5. Thrombocytopenia: Unsure etiology. Will look in medical record to see if possible ITP vs gestational. Some evidence to suspect COVID related. LFT added. Continue to monitor. Risk factor for bleeding. Dispo: Continue close monitoring. Limit exposure. ABrayMD
--- NOTE | 2019-06-08 13:42 | ULT ---
LIMITED OB ULTRASOUND: HISTORY: Evaluate for placenta previa. COMPARISON: None. TECHNIQUE: Transabdominal and endovaginal imaging of the gravid uterus is performed. FINDINGS: Single intrauterine gestation, vertex presentation. Posterior placenta. There is evidence of placenta previa. The placenta covers the endocervical os. Ce rvical length is between 3.1 and 3.6 cm. Cervix appears to be closed. heart tones: 131 bpm. Nonstress biophysical profile: tone 2. movements 2. breathing 2. Amniotic fluid 2. Total score 8 out of 8. biometry: BPD: 7.76 cm, 31 weeks 1 day Head circumference: 28.90 cm, 31 weeks 6 days Abdominal circumference: 27.20 cm, 31 weeks 2 days Femur length 5.92 cm, 30 weeks 6 days Average age by sonography is 31 weeks 2 days. Estimated weight is 1718 g +/- 254 g. IMPRESSION: 1. Nonstress biophysical profile score 8 out of 8. 2. Posterior placenta. There is evidence of previa. 3. Cervical length between 3.1 and 3.6 cm. Transcribed Date/Time: 06/08/2019 2:12 PM
[2019-06-08] MEDS ORDERED: Lactated Ringer's 1,000 ML IV SCH ×2 (14:30→23:02)
--- NOTE | 2019-06-08 16:30 | PDOC.OBAPN ---
FMR OB AP PN: Sub - Interval History Hospital Day: 1 Chief Complaint: none Indentification: Interval History: Patient still on IV Mg remains tachycardic s/p 2L IVF boluses. FMR OB AP PN: Obj - Maternal Vital signs: BP: 99/57 HR: 114 Tmax: 99.5F Pox: 99% on RA Wt: 80 kg - Heart Tones Baseline: 130 Variability: moderate Acceleration: present [place] contractions every: no contractions noted FMR OB AP PN: Exam - Physical Exam General: NAD General: no respiratory distress Abdomen: gravid FMR OB AP PN: Data - Labs Lab results: Laboratory Results - last 24 hr 06/08/19 06/08/19 06/08/19 11:13 11:13 11:13 WBC RBC Hgb Hct MCV MCH MCHC RDW Plt Count MPV PT INR APTT Fibrinogen Sodium Potassium Chloride Carbon Dioxide Anion Gap BUN Creatinine Estimated GFR (MDRD) Glucose Calcium C-Reactive Protein Urine Protein Syphilis IgG/IgM Ab Nonreactive Hep Bs Antigen Non-Reactive Blood Type AB POSITIVE Ab Screen Tube Method NEGATIVE Crossmatch See Detail 06/08/19 06/08/19 06/08/19 11:13 11:13 11:13 WBC 9.0 RBC 4.06 L Hgb 11.0 L Hct 32.0 L MCV 78.9 MCH 27.0 MCHC 34.2 RDW 13.9 Plt Count 92 L MPV 10.6 H PT 12.7 INR 1.0 APTT 30.8 Fibrinogen 438 Sodium 137 Potassium 3.3 L Chloride 109 H Carbon Dioxide 20 L Anion Gap 11 BUN Less than 4 L Creatinine 0.55 L Estimated GFR (MDRD) Greater than 90 Glucose 93 Calcium 8.0 C-Reactive Protein Urine Protein Syphilis IgG/IgM Ab Hep Bs Antigen Blood Type Ab Screen Tube Method Crossmatch 06/08/19 06/08/19 11:13 12:49 WBC RBC Hgb Hct MCV MCH MCHC RDW Plt Count MPV PT INR APTT Fibrinogen Sodium Potassium Chloride Carbon Dioxide Anion Gap BUN Creatinine Estimated GFR (MDRD) Glucose Calcium C-Reactive Protein 0.91 H Urine Protein Negative Syphilis IgG/IgM Ab Hep Bs Antigen Blood Type Ab Screen Tube Method Crossmatch - Imaging Imaging: US: 10/25 BPP, cervical length 3.1-3.6cm, posterior placenta w/ previa, closed cervix, cephalic presentation FMR OB AP PN: A/P - Problem List (1) Vaginal bleeding in patient after first trimester with placenta previa Current Visit: Yes Status: Acute Code(s): O44.31 - PARTIAL PLACENTA PREVIA WITH HEMORRHAGE, FIRST TRIMESTER (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 Code(s): Z84.3 - FAMILY HISTORY OF CONSANGUINITY (3) Maternal varicella, non-immune Current Visit: Yes Status: Chronic Code(s): O09.899 - SUPERVISION OF OTHER HIGH RISK PREGNANCIES, UNSP TRIMESTER; Z28.3 - UNDERIMMUNIZATION STATUS (4) Placenta previa antepartum in third trimester Current Visit: Yes Status: Chronic Code(s): O44.03 - COMPLETE PLACENTA PREVIA NOS OR WITHOUT HEMOR, THIRD TRI (5) History of recurrent miscarriages Current Visit: No Status: Chronic Code(s): N96 - RECURRENT LOSS (6) History of D&C Current Visit: Yes Status: Acute Code(s): Z98.890 - OTHER SPECIFIED POSTPROCEDURAL STATES Discussion: Date/Time: 06/08/19 8352 This H&P was discussed with Dr. Hoang and Dr. Hodgson who agree with the above documentation and plan.
--- NOTE | 2019-06-08 17:57 | PDOC.EVN ---
Event Note - Event Note Event Note: OBGYN Faculty I am aware of this patient's case and have reviewed her HX. See Dr Cross note. Problem: There is a HX of consanguinity and she was placed on lovenox and ASA but an outside physician although there is no explicit hx of thromboembolic condition or APA syndrome. She has a previa and this was her first sentinel bleed. Sono: CX length was normal on sono Previa is posterior. Meds: She is on Mag for neuroprotection and is receiving celestone for FLM. She is also on respiratory precautions (flu swab was negative). I attempted to see the patient at bedside but I was rushed out by the male in the room stating NO MALES ALLOWED. A/P: Previa First sentinel bleed at approx 32 weeks Celestone and Mag in use No indication for anticoagulation at this time I have discussed care with Dr Hoang and agree with plan. Test for COVID19 as appropriate.
[2019-06-08 18:26] LABS: Hemoglobin 10.2 g/dL (12.0-16.0); Platelet Count 99 thou/uL (130-400)
[2019-06-08 18:50] LABS: Band 32 % (5-11); Hemoglobin 10.1 g/dL (12.0-16.0); Lymphocytes 9 % (21-51); MDiff Complete? YES; Mean Corpuscular HGB CONC 33.8 g/dL (32.0-36.0); Mean Corpuscular Hemoglobin 26.7 pg (27.0-31.0); Mean Corpuscular Volume 79.1 fL (78.0-98.0); Mean Platelet Volume 11.1 fL (7.4-10.4); Monocytes 2 % (0-10); Neutrophil 53 % (42-75); Platelet Count 101 thou/uL (130-400); Reactive Lymphocytes 4 % (0-10); Red Blood Cell (RBC) Count 3.78 mill/uL (4.20-5.40); White Blood Cell (WBC) Count 9.2 thou/uL (4.8-10.8)
--- NOTE | 2019-06-08 21:52 | PDOC.OBAPN ---
FMR OB AP PN: Sub - Interval History Hospital Day: 1 Chief Complaint: occasional uppper abdominal pressure Indentification: @ 31.5 WGA Interval History: Mg discontinued & patient remains contraction free w/o bleeding. FMR OB AP PN: Obj - Maternal Vital signs: BP: 99/54 HR: 112 Tmax: 99.5F Pox: 99% on RA Wt: 80 kg - Heart Tones Baseline: 130 Variability: moderate Acceleration: present [place] contractions every: 1 small contraction noted @ ~2018 but none since FMR OB AP PN: Exam - Physical Exam General: NAD, awake, alert and oriented HEENT: MMM, conjunctiva clear, grossly normal vision, grossly normal hearing Neck: supple, FROM Heart: normal S1/S2, no murmurs/rubs/gallops, other (tachycardic with regular rhythm) General: CTAB, no respiratory distress, good air movement, no rales/rhonchi, no wheezing, no retractions Abdomen: gravid, non-tender, bowel sound present Musculoskeletal: FROM in all four extremities Neurological: cranial nerves II through XII intact, sensation to pain,touch and proprioception grossly normal, no focal deficit Skin: no rash, good tugor Psychiatric: intact recent and remote memory, good judgement and insight, normal mood and affect FMR OB AP PN: Data - Labs Lab results: Laboratory Results - last 24 hr 06/08/19 06/08/19 06/08/19 11:13 11:13 11:13 WBC RBC Hgb Hct MCV MCH MCHC RDW Plt Count MPV Neutrophils % (Manual) Band Neuts % (Manual) Lymphocytes % (Manual) Reactive Lymphs % Monocytes % (Manual) PT INR APTT Fibrinogen Sodium Potassium Chloride Carbon Dioxide Anion Gap BUN Creatinine Estimated GFR (MDRD) Glucose Calcium C-Reactive Protein Urine Protein Syphilis IgG/IgM Ab Nonreactive Hep Bs Antigen Non-Reactive Blood Type AB POSITIVE Ab Screen Tube Method NEGATIVE Crossmatch See Detail 06/08/19 06/08/19 06/08/19 11:13 11:13 11:13 WBC 9.0 RBC 4.06 L Hgb 11.0 L Hct 32.0 L MCV 78.9 MCH 27.0 MCHC 34.2 RDW 13.9 Plt Count 92 L MPV 10.6 H Neutrophils % (Manual) Band Neuts % (Manual) Lymphocytes % (Manual) Reactive Lymphs % Monocytes % (Manual) PT 12.7 INR 1.0 APTT 30.8 Fibrinogen 438 Sodium 137 Potassium 3.3 L Chloride 109 H Carbon Dioxide 20 L Anion Gap 11 BUN Less than 4 L Creatinine 0.55 L Estimated GFR (MDRD) Greater than 90 Glucose 93 Calcium 8.0 C-Reactive Protein Urine Protein Syphilis IgG/IgM Ab Hep Bs Antigen Blood Type Ab Screen Tube Method Crossmatch 06/08/19 06/08/19 06/08/19 11:13 12:49 18:05 WBC RBC Hgb 10.2 L Hct 29.7 L MCV MCH MCHC RDW Plt Count 99 L MPV Neutrophils % (Manual) Band Neuts % (Manual) Lymphocytes % (Manual) Reactive Lymphs % Monocytes % (Manual) PT INR APTT Fibrinogen Sodium Potassium Chloride Carbon Dioxide Anion Gap BUN Creatinine Estimated GFR (MDRD) Glucose Calcium C-Reactive Protein 0.91 H Urine Protein Negative Syphilis IgG/IgM Ab Hep Bs Antigen Blood Type Ab Screen Tube Method Crossmatch 06/08/19 18:05 WBC 9.2 RBC 3.78 L Hgb 10.1 L Hct 30.0 L MCV 79.1 MCH 26.7 L MCHC 33.8 RDW 14.0 Plt Count 101 L MPV 11.1 H Neutrophils % (Manual) 53 Band Neuts % (Manual) 32 H Lymphocytes % (Manual) 9 L Reactive Lymphs % 4 Monocytes % (Manual) 2 PT INR APTT Fibrinogen Sodium Potassium Chloride Carbon Dioxide Anion Gap BUN Creatinine Estimated GFR (MDRD) Glucose Calcium C-Reactive Protein Urine Protein Syphilis IgG/IgM Ab Hep Bs Antigen Blood Type Ab Screen Tube Method Crossmatch FMR OB AP PN: A/P - Problem List (1) Vaginal bleeding in patient after first trimester with placenta previa Current Visit: Yes Status: Acute Code(s): O44.31 - PARTIAL PLACENTA PREVIA WITH HEMORRHAGE, FIRST TRIMESTER (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 Code(s): Z84.3 - FAMILY HISTORY OF CONSANGUINITY (3) Maternal varicella, non-immune Current Visit: Yes Status: Chronic Code(s): O09.899 - SUPERVISION OF OTHER HIGH RISK PREGNANCIES, UNSP TRIMESTER; Z28.3 - UNDERIMMUNIZATION STATUS (4) Placenta previa antepartum in third trimester Current Visit: Yes Status: Chronic Code(s): O44.03 - COMPLETE PLACENTA PREVIA NOS OR WITHOUT HEMOR, THIRD TRI (5) History of recurrent miscarriages Current Visit: No Status: Chronic Code(s): N96 - RECURRENT LOSS (6) History of D&C Current Visit: Yes Status: Acute Code(s): Z98.890 - OTHER SPECIFIED POSTPROCEDURAL STATES Disposition: A/P: 24YO @ 31.5 WGA by LMP c/w 9.1 week sono who presents to L&D for sudden onset vaginal bleeding with a known history of placenta previa. #Vaginal bleeding @ 31.5 WGA w/ posterior placenta previa: - FHTs still reassuring with no contractions noted on monitor. However patient did report an episode of upper abdominal pressure lasting a few seconds ago that occurred around 1800. - Coags & BMP WNLs but CBC abnormalities noted below. Repeat H/H w/ hgb of 10 down slightly from 11.2 on admission. Will repeat in the AM or sooner should patient become symptomatic. - s/p IM betamethasone @ 1125. Will get next dose tomorrow @ 1125. s/p IV Mg for 6 hours. Has since been d/c since no contractions or bleeding since admission. - VP3 + for beronica. GBS & GC/Chlamydia swabs & urine Cx pending. - [address] place & will continue IVFs w/ LR @ 150mL/hr. 2U PRBCs ordered to be typed & crossed on standby. - Continue strict bedrest. - Q6H progress notes to closely monitor maternal & status closely. #PUI for COVID-19: - Patient & report travels for work & has recently travelled to both [place] & both have developed flu-like symptoms since his return home with cough & subjective fever. -Flu & COVID-19 swabs collected. Per nursing staff COVID-19 swab will not be sent off for testing until 06/10/19 when next batch will be taken to [place]. Droplet isolation precautions pending those results. #Thrombocytopenia: - Plts 92 on admission CBC but WNLs w/ IOB labs but no CBC as an outpatient since per chart review. DDX includes DIC vs. Gestational thrombocytopenia. Latter most likely in setting of NL coags w/ admission labs. - Peripheral smear pending & repeat @ 1800 up to 101. Will repeat with AM labs. - Holding all antiplatelets & anticoagulation in setting of recent acute bleed & known previa. #anemia in : - H/H w/ 1T IOB labs 11.8/35.1 w/ microcytosis per chart review. No workup done. Will get peripheral smear & start on PO iron w/ PNVs while inpatient. - Will continue to trend CBCs. #posterior placenta previa: - Aware & noted on official sono obtained just after admission. See plan for #1. #FH consanguinuity: - Aware, negative quad screen & following with MFM. 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 Will d/ c while inpatient. Following w/ MFM. #varicella non-immune - Noted on IOB labs. Will vaccinate post-. h/o D&C x1: - Aware, done after 1st w/ SAB @ ~6 WGA Dispo: Will continue close monitoring on L&D. Discussion: Date/Time: 06/08/192150 This H&P was discussed with Dr. Hoang who agrees with the above documentation and plan. Addendum - Attending - Attending Attestation Date/Time: 06/08/192240 I personally evaluated the patient and discussed the management with Dr. Cross I agree with the History, Examination, Assessment and Plan documented above with any addition or exceptions noted below. 24 yo female at 31.5 wks by LMP/9.1 wk sono admitted for vaginal bleeding posterior placenta previa. Patient remains without bleeding. No contractions. +FM. H&H stable. 1. sIUP: GBS swab pending. Vaginal swabs pending. s/p BMZ for FLM. 2nd dose tomorrow. Restart mag for neuro protection if sign of labor or need for delivery appear. Cephalic on sono. EFW 1718g (23%). Cat 1 to 2 which is appropriate for gestational age. No need for delivery at this year. 2. Posterior previa: s/p sentinal bleed. Now stable. Trend labs. Deliver based on maternal and/or needed. Risk factors evaluated. Imaging discussed with MFM. Low risk for accreta. 3. Recurrent miscarriages: Hx of D&C x1. Previously on ASA (stopped 1 month ago ) and lovenox (stopped 3 days ago). 4. COVID19 risk: Isolation. Test pending. Symptoms mild. Continue close monitoring. Will continue to monitor fetus x 24 hours. Irlanda
[2019-06-08] MEDS: Docusate 100 MG CAP PO SCH (22:20)
[2019-06-08] MEDS ORDERED: Potassium Chloride 20 MEQ TAB PO SCH (23:00)
[2019-06-08] MEDS ORDERED: Acetaminophen 500 MG TAB PO SCH (23:45)
--- NOTE | 2019-06-09 02:41 | PDOC.OBAPN ---
FMR OB AP PN: Sub - Interval History Hospital Day: 2 Chief Complaint: none Indentification: @ 31.6 WGA Interval History: Patient reported pain & numbness relief with tylenol & atarax. Resting now. FMR OB AP PN: Obj - Maternal Vital signs: BP: 99/57 HR: 95 Tmax: 98.8F Pox: 97% on RA Wt: 80 kg - Heart Tones Baseline: 120 Variability: moderate Acceleration: present [place] contractions every: none noted since last progress note FMR OB AP PN: Data - Labs Lab results: Laboratory Results - last 24 hr 06/08/19 06/08/19 06/08/19 11:13 11:13 11:13 WBC RBC Hgb Hct MCV MCH MCHC RDW Plt Count MPV Neutrophils % (Manual) Band Neuts % (Manual) Lymphocytes % (Manual) Reactive Lymphs % Monocytes % (Manual) PT INR APTT Fibrinogen Sodium Potassium Chloride Carbon Dioxide Anion Gap BUN Creatinine Estimated GFR (MDRD) Glucose Calcium Troponin I C-Reactive Protein Urine Protein Syphilis IgG/IgM Ab Nonreactive Hep Bs Antigen Non-Reactive Blood Type AB POSITIVE Ab Screen Tube Method NEGATIVE Crossmatch See Detail 06/08/19 06/08/19 06/08/19 11:13 11:13 11:13 WBC 9.0 RBC 4.06 L Hgb 11.0 L Hct 32.0 L MCV 78.9 MCH 27.0 MCHC 34.2 RDW 13.9 Plt Count 92 L MPV 10.6 H Neutrophils % (Manual) Band Neuts % (Manual) Lymphocytes % (Manual) Reactive Lymphs % Monocytes % (Manual) PT 12.7 INR 1.0 APTT 30.8 Fibrinogen 438 Sodium 137 Potassium 3.3 L Chloride 109 H Carbon Dioxide 20 L Anion Gap 11 BUN Less than 4 L Creatinine 0.55 L Estimated GFR (MDRD) Greater than 90 Glucose 93 Calcium 8.0 Troponin I C-Reactive Protein Urine Protein Syphilis IgG/IgM Ab Hep Bs Antigen Blood Type Ab Screen Tube Method Crossmatch 06/08/19 06/08/19 06/08/19 11:13 12:49 18:05 WBC RBC Hgb 10.2 L Hct 29.7 L MCV MCH MCHC RDW Plt Count 99 L MPV Neutrophils % (Manual) Band Neuts % (Manual) Lymphocytes % (Manual) Reactive Lymphs % Monocytes % (Manual) PT INR APTT Fibrinogen Sodium Potassium Chloride Carbon Dioxide Anion Gap BUN Creatinine Estimated GFR (MDRD) Glucose Calcium Troponin I C-Reactive Protein 0.91 H Urine Protein Negative Syphilis IgG/IgM Ab Hep Bs Antigen Blood Type Ab Screen Tube Method Crossmatch 06/08/19 06/08/19 18:05 23:41 WBC 9.2 RBC 3.78 L Hgb 10.1 L Hct 30.0 L MCV 79.1 MCH 26.7 L MCHC 33.8 RDW 14.0 Plt Count 101 L MPV 11.1 H Neutrophils % (Manual) 53 Band Neuts % (Manual) 32 H Lymphocytes % (Manual) 9 L Reactive Lymphs % 4 Monocytes % (Manual) 2 PT INR APTT Fibrinogen Sodium Potassium Chloride Carbon Dioxide Anion Gap BUN Creatinine Estimated GFR (MDRD) Glucose Calcium Troponin I Less than 0.010 C-Reactive Protein Urine Protein Syphilis IgG/IgM Ab Hep Bs Antigen Blood Type Ab Screen Tube Method Crossmatch FMR OB AP PN: A/P - Problem List (1) Vaginal bleeding in patient after first trimester with placenta previa Current Visit: Yes Status: Acute Code(s): O44.31 - PARTIAL PLACENTA PREVIA WITH HEMORRHAGE, FIRST TRIMESTER (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 Code(s): Z84.3 - FAMILY HISTORY OF CONSANGUINITY (3) Maternal varicella, non-immune Current Visit: Yes Status: Chronic Code(s): O09.899 - SUPERVISION OF OTHER HIGH RISK PREGNANCIES, UNSP TRIMESTER; Z28.3 - UNDERIMMUNIZATION STATUS (4) Placenta previa antepartum in third trimester Current Visit: Yes Status: Chronic Code(s): O44.03 - COMPLETE PLACENTA PREVIA NOS OR WITHOUT HEMOR, THIRD TRI (5) History of recurrent miscarriages Current Visit: No Status: Chronic Code(s): N96 - RECURRENT LOSS (6) History of D&C Current Visit: Yes Status: Acute Code(s): Z98.890 - OTHER SPECIFIED POSTPROCEDURAL STATES Disposition: Of note, exam deferred as patient now resting comfortably with normal vitals since last exam A/P: 24YO @ 31.6 WGA by LMP c/w 9.1 week sono who presents to L&D for sudden onset vaginal bleeding with a known history of placenta previa. #Vaginal bleeding @ 31.6 WGA w/ posterior placenta previa: - FHTs still reassuring with no contractions noted on monitor. - Coags & BMP WNLs but CBC abnormalities noted below. Repeat H/H w/ hgb of 10 down slightly from 11.0 on admission. Will repeat in the AM or sooner should patient become symptomatic. - s/p IM betamethasone @ 1125. Will get next dose tomorrow @ 1125. s/p IV Mg for 6 hours. Has since been d/c since no contractions or bleeding since admission. - VP3 + for beronica. GBS & GC/Chlamydia swabs & urine Cx pending. - [address] place & will continue IVFs w/ LR @ 125mL/hr. 2U PRBCs ordered to be typed & crossed on standby. - Continue strict bedrest. - Q6H progress notes to closely monitor maternal & status closely. #PUI for COVID-19: - Patient & report travels for work & has recently travelled to both [place] & [employer] & both have developed flu-like symptoms since his return home with cough & subjective fever. -Flu & COVID-19 swabs collected. Per nursing staff COVID-19 swab will not be sent off for testing until 06/10/19 when next batch will be taken to [place]. Droplet isolation precautions pending those results. #Thrombocytopenia: - Plts 92 on admission CBC but WNLs w/ IOB labs but no CBC as an outpatient since per chart review. DDX includes DIC vs. Gestational thrombocytopenia. Latter most likely in setting of NL coags w/ admission labs. - Peripheral smear pending & repeat @ 1800 up to 101. Will repeat with AM labs. - Holding all antiplatelets & anticoagulation in setting of recent acute bleed & known previa. #anemia in : - H/H w/ 1T IOB labs 11.8/35.1 w/ microcytosis per chart review. No workup done. Will get peripheral smear & start on PO iron w/ PNVs while inpatient. - Will continue to trend CBCs. Hypokalemia: - K 3.3 on admission & is s/p 40 mEq PO KCl. Repeat BMP with AM labs. #posterior placenta previa: - Aware & noted on official sono obtained just after admission. See plan for #1. #FH consanguinuity: - Aware, negative quad screen & following with M. 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 Will d/ c while inpatient. Following w/ MFM. #varicella non-immune - Noted on IOB labs. Will vaccinate post-. h/o D&C x1: - Aware, done after 1st w/ SAB @ ~6 WGA Dispo: Will continue close monitoring on L&D. Discussion: Date/Time: 06/09/19240 This H&P was discussed with Dr. Hoang who agrees with the above documentation and plan. Addendum - Attending - Attending Attestation Date/Time: 06/09/19 4614 I personally evaluated the patient and discussed the management with Dr. Cross I agree with the History, Examination, Assessment and Plan documented above with any addition or exceptions noted below. 24 yo female at 31.6 wks by LMP/9.1 wk sono admitted for vaginal bleeding posterior placenta previa. Patient remains without bleeding. No contractions. +FM. 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 1. sIUP: GBS swab pending. Vaginal swabs pending. s/p BMZ for FLM. 2nd dose today. Restart mag for neuro protection if sign of labor or need for delivery appear. Cephalic on sono. EFW 1718g (23%). Cat 1 to 2 which is appropriate for gestational age. No need for delivery at this year. 2. Posterior previa: s/p sentinal bleed. Now stable. Trend labs. Deliver based on maternal and/or needed. Risk factors evaluated. Imaging discussed with M. Low risk for accreta. Will d/c IVFs and [place] this morning. Continue bed rest. Bedside commode. Ok to d/c continuous monitoring at 24 hours, then switch to 1 hour TID. Laborist consulted. Patient request females only. 3. Recurrent miscarriages: Hx of D&C x1. Previously on ASA (stopped 1 month ago ) and lovenox (stopped 3 days ago). 4. COVID19 risk: Isolation. Test pending. Symptoms mild. 5. Potassium replaced. 6. Anxiety: Panic attack this morning. Resolved. Tachycardia due to anxiety as well. Resolved with sleep and medication. Sinus on EKG. Continue close monitoring. Awaiting AM labs. ABrayMD
--- NOTE | 2019-06-09 06:27 | PDOC.EVN ---
Event Note - Event Note Event Note: OBGYN 06/09/19 0620 Patient stable I have reviewed the progress note from Dr Cross from 0240 this AM. Aware of plan and agree. Continue with plan of care. Covid-19 test to be sent off Monday. Celestone in use. No further VB. Informed to stop lovenox and ASA OBGYN will sign off as plan is set. We will provide further eval when/if needed. Thank you.
[2019-06-09 06:35] LABS: #Eosinphils 0.1 thou/uL (0.0-0.7); #Lymphocytes 1.8 thou/uL (1.20-3.40); #Monocytes 0.5 thou/uL (0.11-0.59); #Neutrophils 5.4 thou/uL (1.40-6.50); %Basophils 0.2 % (0.0-1.0); %Eosinophils 1.3 % (0.0-10.0); %Monocytes 5.8 % (0.0-10.0); %Neutrophils 69.6 % (42.0-75.0); Hemoglobin 9.6 g/dL (12.0-16.0); Mean Corpuscular HGB CONC 33.9 g/dL (32.0-36.0); Mean Corpuscular Volume 79.6 fL (78.0-98.0); Mean Platelet Volume 11.1 fL (7.4-10.4); Platelet Count 97 thou/uL (130-400); RBC Distribution Width 14.2 % (11.5-14.5); Red Blood Cell (RBC) Count 3.55 mill/uL (4.20-5.40); White Blood Cell (WBC) Count 7.7 thou/uL (4.8-10.8)
--- NOTE | 2019-06-09 06:46 | PDOC.OBAPN ---
FMR OB AP PN: Sub - Interval History Hospital Day: 2 Chief Complaint: None Indentification: @ 31.6 WGA with known previa who presented w/ vaginal bleeding. Interval History: Patient remained stable overnight w/ no contractions or rebleeding. FMR OB AP PN: Obj - Maternal Vital signs: BP: [] HR: [] RR: [] Tmax: [] Pox: []% on [] Wt: [] - Heart Tones Variability: moderate Acceleration: present Deceleration: absent [place] contractions every: none noted since last progress note FMR OB AP PN: Exam - Physical Exam General: NAD, awake, alert and oriented HEENT: MMM, grossly normal vision, grossly normal hearing Neck: supple, FROM Heart: RRR, normal S1/S2, no murmurs/rubs/gallops, pulses present, no edema General: CTAB, no respiratory distress, good air movement, no rales/rhonchi, no wheezing, no retractions Abdomen: gravid, non-tender, bowel sound present Musculoskeletal: FROM in all four extremities Neurological: cranial nerves II through XII intact, sensation to pain,touch and proprioception grossly normal, no focal deficit Skin: no rash, good tugor Lymphatic: no unusual bruising or bleeding Psychiatric: intact recent and remote memory, good judgement and insight, normal mood and affect - Pelvic Exam Vulva: no blood FMR OB AP PN: Data - Labs Lab results: Laboratory Results - last 24 hr 06/08/19 06/08/19 06/08/19 11:13 11:13 11:13 WBC RBC Hgb Hct MCV MCH MCHC RDW Plt Count MPV Neutrophils % Neutrophils % (Manual) Band Neuts % (Manual) Lymphocytes % Lymphocytes % (Manual) Reactive Lymphs % Monocytes % Monocytes % (Manual) Eosinophils % Basophils % Neutrophils # Lymphocytes # Monocytes # Eosinophils # Basophils # PT INR APTT Fibrinogen Sodium Potassium Chloride Carbon Dioxide Anion Gap BUN Creatinine Estimated GFR (MDRD) Glucose Calcium Troponin I C-Reactive Protein Urine Protein Syphilis IgG/IgM Ab Nonreactive Hep Bs Antigen Non-Reactive Blood Type AB POSITIVE Ab Screen Tube Method NEGATIVE Crossmatch See Detail 06/08/19 06/08/19 06/08/19 11:13 11:13 11:13 WBC 9.0 RBC 4.06 L Hgb 11.0 L Hct 32.0 L MCV 78.9 MCH 27.0 MCHC 34.2 RDW 13.9 Plt Count 92 L MPV 10.6 H Neutrophils % Neutrophils % (Manual) Band Neuts % (Manual) Lymphocytes % Lymphocytes % (Manual) Reactive Lymphs % Monocytes % Monocytes % (Manual) Eosinophils % Basophils % Neutrophils # Lymphocytes # Monocytes # Eosinophils # Basophils # PT 12.7 INR 1.0 APTT 30.8 Fibrinogen 438 Sodium 137 Potassium 3.3 L Chloride 109 H Carbon Dioxide 20 L Anion Gap 11 BUN Less than 4 L Creatinine 0.55 L Estimated GFR (MDRD) Greater than 90 Glucose 93 Calcium 8.0 Troponin I C-Reactive Protein Urine Protein Syphilis IgG/IgM Ab Hep Bs Antigen Blood Type Ab Screen Tube Method Crossmatch 06/08/19 06/08/19 06/08/19 11:13 12:49 18:05 WBC RBC Hgb 10.2 L Hct 29.7 L MCV MCH MCHC RDW Plt Count 99 L MPV Neutrophils % Neutrophils % (Manual) Band Neuts % (Manual) Lymphocytes % Lymphocytes % (Manual) Reactive Lymphs % Monocytes % Monocytes % (Manual) Eosinophils % Basophils % Neutrophils # Lymphocytes # Monocytes # Eosinophils # Basophils # PT INR APTT Fibrinogen Sodium Potassium Chloride Carbon Dioxide Anion Gap BUN Creatinine Estimated GFR (MDRD) Glucose Calcium Troponin I C-Reactive Protein 0.91 H Urine Protein Negative Syphilis IgG/IgM Ab Hep Bs Antigen Blood Type Ab Screen Tube Method Crossmatch 06/08/19 06/08/19 06/09/19 18:05 23:41 06:21 WBC 9.2 7.7 RBC 3.78 L 3.55 L Hgb 10.1 L 9.6 L Hct 30.0 L 28.3 L MCV 79.1 79.6 MCH 26.7 L 27.0 MCHC 33.8 33.9 RDW 14.0 14.2 Plt Count 101 L 97 L MPV 11.1 H 11.1 H Neutrophils % 69.6 Neutrophils % (Manual) 53 Not Reportable Band Neuts % (Manual) 32 H Lymphocytes % 23.0 Lymphocytes % (Manual) 9 L Reactive Lymphs % 4 Monocytes % 5.8 Monocytes % (Manual) 2 Eosinophils % 1.3 Basophils % 0.2 Neutrophils # 5.4 Lymphocytes # 1.8 Monocytes # 0.5 Eosinophils # 0.1 Basophils # 0.0 PT INR APTT Fibrinogen Sodium Potassium Chloride Carbon Dioxide Anion Gap BUN Creatinine Estimated GFR (MDRD) Glucose Calcium Troponin I Less than 0.010 C-Reactive Protein Urine Protein Syphilis IgG/IgM Ab Hep Bs Antigen Blood Type Ab Screen Tube Method Crossmatch FMR OB AP PN: A/P - Problem List (1) Vaginal bleeding in patient after first trimester with placenta previa Current Visit: Yes Status: Acute Code(s): O44.31 - PARTIAL PLACENTA PREVIA WITH HEMORRHAGE, FIRST TRIMESTER (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 Code(s): Z84.3 - FAMILY HISTORY OF CONSANGUINITY (3) Maternal varicella, non-immune Current Visit: Yes Status: Chronic Code(s): O09.899 - SUPERVISION OF OTHER HIGH RISK PREGNANCIES, UNSP TRIMESTER; Z28.3 - UNDERIMMUNIZATION STATUS (4) Placenta previa antepartum in third trimester Current Visit: Yes Status: Chronic Code(s): O44.03 - COMPLETE PLACENTA PREVIA NOS OR WITHOUT HEMOR, THIRD TRI (5) History of recurrent miscarriages Current Visit: No Status: Chronic Code(s): N96 - RECURRENT LOSS (6) History of D&C Current Visit: Yes Status: Acute Code(s): Z98.890 - OTHER SPECIFIED POSTPROCEDURAL STATES Disposition: A/P: 24YO @ 31.6 WGA by LMP c/w 9.1 week sono who presents to L&D for sudden onset vaginal bleeding with a known history of placenta previa. #Vaginal bleeding @ 31.6 WGA w/ posterior placenta previa: - FHTs still reassuring with no contractions noted on monitor. - Coags & BMP WNLs but CBC abnormalities noted below. H/H continues to slowly downtrend from 11.0-->10.1-->9.6 this AM. cEBL ~653mL since admission. - s/p IM betamethasone @ 1125 on 06/07. Will get next dose today @ 1125. s/p IV Mg for 6 hours. No contractions or bleeding since admission. - VP3 + for beronica. GBS & GC/Chlamydia swabs & urine Cx pending. - [address] in place & will continue IVFs w/ LR @ 125mL/hr. 2U PRBCs ordered to be typed & crossed on standby. - Continue strict bedrest. - Q6H progress notes to closely monitor maternal & status closely. - Laborists on board for assistance PRN. Appreciate recs. #PUI for COVID-19: - Patient & report travels for work & has recently travelled to both [place] & [place] airports & both have developed flu-like symptoms since his return home with cough & subjective fever. -Flu & COVID-19 swabs collected. Per nursing staff COVID-19 swab will not be sent off for testing until 06/10/19, when next batch will be taken to [place]. Droplet isolation precautions pending those results. #Thrombocytopenia: - Plts 92 on admission CBC but WNLs w/ IOB labs but no CBC as an outpatient since per chart review. DDX includes DIC vs. Gestational thrombocytopenia. Latter most likely in setting of NL coags w/ admission labs. - Peripheral smear pending & levels have remained essentially stable at 101 @ 1800 yesterday & 97 this AM. - Holding all antiplatelets & anticoagulation in setting of recent acute bleed & known previa. - Will continue to trend w/ H/H. #anemia in : - H/H w/ 1T IOB labs 11.8/35.1 w/ microcytosis per chart review. No workup done. Will get peripheral smear & start on PO iron w/ PNVs while inpatient. - Will continue to trend CBCs. Hypokalemia: - K 3.3 on admission & is s/p 40 mEq PO KCl. Up to 4 this AM. Will continue to trend & replace PRN. #posterior placenta previa: - Aware & noted on official sono obtained just after admission. See plan for #1. #FH consanguinuity: - Aware, negative quad screen & following with MFM. 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 Will d/ c while inpatient. Following w/ MFM. #varicella non-immune - Noted on IOB labs. Will vaccinate post-. h/o D&C x1: - Aware, done after 1st w/ SAB @ ~6 WGA Dispo: Will continue close monitoring on L&D with plans to give second steroid dose this AM & resume Mg therapy should contractions start or bleeding resume. Discussion: Date/Time: 06/09/19 0645 This H&P was discussed with Dr. Hoang who agrees with the above documentation and plan.
[2019-06-09 06:47] LABS: Anion Gap 10 mmol/L (10-20); BUN (Urea Nitrogen) 4 mg/dL (7.0-18.7); Calc. Creatinine Clearance 234 mL/min (70-130); Calcium 7.4 mg/dL (7.8-10.44); Carbon Dioxide 19 mmol/L (22-29); Chloride 112 mmol/L (98-107); Estimated GFR-MDRD Greater than 90; Glucose 120 mg/dL (70-105); Magnesium 2.1 mg/dL (1.6-2.6); Sodium 137 mmol/L (136-145)
[2019-06-09] MEDS ORDERED: Ferrous Gluconate 324 MG TAB PO SCH (08:00)
[2019-06-09] MEDS ORDERED: Ferrous Sulfate 325 MG TAB PO SCH (08:00)
[2019-06-09] MEDS ORDERED: Succinylcholine Chloride 20 MG/ML 10 ml SYRINGE FS ONE (08:32)
[2019-06-09] MEDS ORDERED: Rocuronium Bromide 10 MG/ML (10ML VIAL) ONE (08:33)
[2019-06-09] MEDS ORDERED: PROPOFOL 20 ML ONE (08:33)
[2019-06-09] MEDS ORDERED: Midazolam HCl 2 mg/2 ml Vial ONE ×2 (08:36→11:03)
[2019-06-09] MEDS ORDERED: Fentanyl 250 MCG/5 ML VIAL ONE (08:36)
--- NOTE | 2019-06-09 08:44 | PDOC.BPN ---
<Princess Cross - Last Filed: 06/09/19 08:44> - Brief Progress Note 24YO @ 31.6 WGA by LMP c/w 9.1 week sono who presented to L&D for a sentinel bleed with a known history of placenta previa. Was admitted overnight for close monitoring and had no acute events until ~0815 this AM when physicians were notified that she was bleeding again. Large bed pad was noted to be soaked with blood & multiple large clots also seen. Decision made to give second IM betamethasone injection NOW and take back to OR for STAT primary C/S for delivery. Dony team & anesthesia notified. Patient also a COVID-19 PUI so N95 respirators were made available for entire OR team. 2U obtained from blood bank with 1 to be given during/before starting surgery. <Adwoa Hoang - Last Filed: 06/11/19 14:29> - Brief Progress Note HD#1 24 yo female at 31.6 wks Called to room for vaginal bleeding. Large bleed with clots. heart tones 140 on doppler. No contractions. Patient with stable vitals. Denies dizziness, fatigue, SOB. Called for bedside ultrasound. movement and cardiac activity seen. Fetus moved from cephalic to maternal right transverse positioning. Fundus soft. Emergent delivery called. Dr. Mast awaiting to assist with surgery outside door. All involved staff made aware of COVID19 status. N95s used. Called for 2 units. Resident sent to obtain cooler. Blood started once back in OR. QBL from previa bleed = 1200 mL. See op note for details of procedure. Irlanda
[2019-06-09] MEDS ORDERED: Dexamethasone 4 mg/ml Vial ONE (08:53)
[2019-06-09] MEDS ORDERED: Ondansetron PF 4 MG/2 ML Vial ONE (08:53)
[2019-06-09] MEDS ORDERED: Oxytocin 10 UNITS/ML VIAL ONE ×2 (08:53→09:31)
[2019-06-09] MEDS ORDERED: Prenatal Vitamin 1 TAB PO SCH (09:00)
[2019-06-09] MEDS ORDERED: Meperidine HCl/PF 25 MG/ML VIAL SLOW IVP PRN (09:33)
[2019-06-09] MEDS ORDERED: HYDROmorphone 2 MG/ML VIAL SLOW IVP PRN (09:33)
[2019-06-09] MEDS ORDERED: Glycopyrrolate 0.2 MG/ML 5 ML SYRINGE ONE (09:33)
[2019-06-09] MEDS ORDERED: L&D-Morphine 4 MG/ML VIAL SLOW IVP PRN (09:33)
[2019-06-09] MEDS ORDERED: Ondansetron HCl/PF 4 MG/2 ML Vial IVP PRN (09:33)
[2019-06-09] MEDS ORDERED: Morphine CADD 1 MG/ML CADD IVPB PRN (09:34)
[2019-06-09] MEDS ORDERED: Ondansetron PF 4 MG/2 ML Vial IVP PRN (09:34)
[2019-06-09] MEDS ORDERED: diphenhydrAMINE 50 MG/ML VIAL IVP PRN (09:34)
[2019-06-09] MEDS ORDERED: Zolpidem Tartrate 5 MG TAB PO PRN (09:34)
[2019-06-09] MEDS ORDERED: Naloxone HCl 0.4 mg/ml Vial IV PRN (09:34)
[2019-06-09] MEDS ORDERED: diphenhydrAMINE 50 MG/ML VIAL IM PRN (09:34)
[2019-06-09] MEDS ORDERED: diphenhydrAMINE 25 MG CAP PO PRN (09:34)
[2019-06-09] MEDS ORDERED: Promethazine HCl 25 MG/ML VIAL IM PRN (09:34)
[2019-06-09] MEDS ORDERED: Ketorolac Tromethamine 30 MG/ML VIAL IVP SCH (09:45)
[2019-06-09] MEDS ORDERED: Communication Order-Pharmacy FS SCH (09:45)
[2019-06-09] MEDS ORDERED: Lanolin Ointment 7 GM TUBE TOP PRN (09:50)
[2019-06-09] MEDS ORDERED: Adacel (T-DAP) 0.5 ML SYRINGE IM ONE (09:50)
[2019-06-09] MEDS ORDERED: hydrALAZINE 20 MG/ML VIAL SLOW IVP PRN (09:50)
[2019-06-09] MEDS ORDERED: Milk Of Magnesia 30 ML UDCUP PO PRN (09:51)
[2019-06-09 10:43] LABS: #Eosinphils 0.2 thou/uL (0.0-0.7); #Monocytes 0.1 thou/uL (0.11-0.59); #Neutrophils 12.6 thou/uL (1.40-6.50); %Basophils 0.1 % (0.0-1.0); %Eosinophils 1.6 % (0.0-10.0); %Lymphocytes 13.5 % (21.0-51.0); %Monocytes 0.6 % (0.0-10.0); %Neutrophils 84.1 % (42.0-75.0); Hemoglobin 10.6 g/dL (12.0-16.0); Mean Corpuscular HGB CONC 33.3 g/dL (32.0-36.0); Mean Corpuscular Hemoglobin 27.4 pg (27.0-31.0); Mean Corpuscular Volume 82.3 fL (78.0-98.0); Mean Platelet Volume 10.5 fL (7.4-10.4); Platelet Count 121 thou/uL (130-400); RBC Distribution Width 14.4 % (11.5-14.5); Red Blood Cell (RBC) Count 3.86 mill/uL (4.20-5.40)
[2019-06-09] MEDS ORDERED: Morphine Sulfate 100 MG in Dextrose 5% in Water 98 ML IV PRN (10:44)
[2019-06-09] MEDS ORDERED: Meperidine HCl/PF 25 MG/ML VIAL ONE (10:47)
[2019-06-09] MEDS ORDERED: Tranexamic Acid 1,000 MG/10 ML VIAL ONE ×2 (10:48→11:16)
[2019-06-09] MEDS ORDERED: Misoprostol 200 MCG TAB ONE (10:54)
[2019-06-09] MEDS ORDERED: Carboprost 250 MCG/ML AMP ONE (10:55)
[2019-06-09] MEDS: Methylergonovine 0.2 MG/ML VIAL ONE ×2 (10:57→11:46)
[2019-06-09] MEDS ORDERED: Midazolam HCl 2 mg/2 ml Vial SLOW IVP SCH ×2 (11:15→11:30)
[2019-06-09] MEDS ORDERED: Methylergonovine 0.2 MG/ML VIAL ONE (11:44)
[2019-06-09] MEDS ORDERED: Gentamicin 20 MG/2 ML PF (Neonates) IVPB SCH (11:45)
[2019-06-09] MEDS ORDERED: Clindamycin (PEDI) 900 MG in Syringe 0 ML IVPB SCH (11:45)
[2019-06-09 12:32] LABS: Fibrinogen 324 mg/dL (253-463); PTT 28.7 SEC (22.9-36.1); Prothrombin Time 13.6 SEC (12.0-14.7)
[2019-06-09 12:33] LABS: D-Dimer Test 2.51 *mcg/mL (0.27-0.43)
--- NOTE | 2019-06-09 12:39 | PDOC.EVN ---
Event Note - Event Note Event Note: pLTCS for vaginal bleeding with placenta previa. After delivery and skin closure patient noted to be passing clots vaginally. Mass transfusion protocol initiated. Bakri balloon placed successfully on second attempt. Pt has received Methergine x2, TXA x2 in addition to blood products. Vital signs currently stable and minimal bleeding. Gent and Clinda started for endometritis ppx. More detailed note to follow. Attending Note: Called approximately 30 to 40 minutes after section for significant vaginal bleeding. At end of case patient was hemostatic. Fundus was firm. Upon initial evaluation multiple large clots evacuated from vaginal canal. On bimanual fundus firm. Concern for placental bed bleeding from location of previa. Methergine and TXA called. MTP initiated. Patient was currently receiving [address] Mast called for assistance. I called for Sam. Due to patient discomfort unable to place. Versed 0.5 mg given to help with relaxation. Demorol just provided from anesthesia. Second Sam called. Dispite some patient discomfort placed appropriately by Dr. Mast. 480 mL of sterile saline infused. Hemorrhaging stabilized. Throughout event patient's vital signs remained stable. No code green or blue called. PPE was donned during event. EBL = 2500 mL MTP -> 5 units pRBC, 3 FFP PPX antibx (gent/clinda) x 24 hours Continue to monitor closely. Labs reviewed and stable during MTP. Will continue to trend throughout the afternoon to insure MTP adequate. No evidence of DIC at this time. Will give 20 mg Lasix due to risk for pulm edema/3rd spacing from products. Monitor Ca and Mag level. Irlanda
[2019-06-09 12:59] LABS: Platelet Count 110 thou/uL (130-400)
[2019-06-09] MEDS ORDERED: Gentamicin Sulfate 400 MG in Sodium Chloride 0.9% 100 ML IVPB SCH (13:00)
[2019-06-09] MEDS ORDERED: Furosemide 20 MG/2 ML VIAL SLOW IVP SCH (13:30)
[2019-06-09 13:44] LABS: FSP-Qualitative ABNORMAL (Normal); FSP-Semiquantitative >=5 & <20 mcg/mL (Less than 5)
[2019-06-09] MEDS: Lactated Ringer's 1,000 ML IV SCH (13:55)
[2019-06-09 15:40] LABS: #Eosinphils 0.1 thou/uL (0.0-0.7); #Lymphocytes 2.8 thou/uL (1.20-3.40); #Monocytes 0.9 thou/uL (0.11-0.59); #Neutrophils 15.5 thou/uL (1.40-6.50); %Basophils 0.1 % (0.0-1.0); %Eosinophils 0.7 % (0.0-10.0); %Lymphocytes 14.4 % (21.0-51.0); %Monocytes 4.5 % (0.0-10.0); %Neutrophils 80.3 % (42.0-75.0); Hemoglobin 11.8 g/dL (12.0-16.0); Mean Corpuscular HGB CONC 34.5 g/dL (32.0-36.0); Mean Corpuscular Hemoglobin 28.6 pg (27.0-31.0); Mean Corpuscular Volume 82.7 fL (78.0-98.0); Mean Platelet Volume 10.4 fL (7.4-10.4); Platelet Count 123 thou/uL (130-400); RBC Distribution Width 15.2 % (11.5-14.5); Red Blood Cell (RBC) Count 4.12 mill/uL (4.20-5.40); White Blood Cell (WBC) Count 19.3 thou/uL (4.8-10.8)
--- NOTE | 2019-06-09 15:45 | PDOC.BPN ---
- Brief Progress Note 24YO @ 31.6 WGA by LMP c/w 9.1 week sono who presented to L&D for a sentinel bleed with a known history of placenta previa. Later had pLTCS for vaginal bleeding with placenta previa at approx. 0900 on 06/09/19.
--- NOTE | 2019-06-09 15:57 | PDOC.BPN ---
- Brief Progress Note Called to room for evaluation of heavy bleeding following primary ELTCS for previa. MTP started, given methergine, TXA, cytotec. Bakri balloon placed successfully on second attempt, inflated to 480ml. Bleeding stable.
--- NOTE | 2019-06-09 16:04 | PDOC.PP ---
Post Progress Note Post Day #: 0 Subjective: 24YO @ 31.6 WGA by LMP c/w 9.1 week livier who presented to L&D for a sentinel bleed with a known history of placenta previa. Later had pLTCS for vaginal bleeding with placenta previa at approx. 0900 on 06/09/19. She had post- op bleeding that started at approx. 1100 (see earlier notes) which activated massive transfusion protocol. Currently patient is doing well, states that she is having some lower abdominal pain which is improved by IV pain meds. She denies having passed any flatus or BM at this time. Her vaginal pad is about 75% full with 2 small clots. Urine output was approximately 2000 mL over past 4 hours. PO intake tolerated: yes Flatus: no Ambulation: no Weight Weight 80 kg all BP within normal range over past 4 hours - Physical Examination General: NAD Cardiovascular: no m/r/g, RRR Respiratory: clear to auscultation bilaterally, non-labored breathing Abdominal: + bowel sounds, lochia, appropriately TTP Fundus firm & at: umbilicus Extremities: negative homans (B) Skin: CS incision dry & intact, no rash Neurological: no gross focal deficits Psychiatric: A&Ox3, normal affect Result Diagrams: 06/11/19 05:47 06/10/19 03:34 Additional Labs: Post Labs Blood Type AB POSITIVE 06/08/19 11:13 Hep Bs Antigen Non-Reactive S/CO (NonReactive) 06/08/19 11:13 (1) Placenta previa antepartum in third trimester Code(s): O44.03 - COMPLETE PLACENTA PREVIA NOS OR WITHOUT HEMOR, THIRD TRI Status: Chronic - Assessment/Plan #Vaginal bleeding @ 31.6 WGA w/ posterior placenta previa s/p pLTCS on 06/09/19 - Doing well with this check, continue to monitor UOP, if flatus or BM - Continue strict bedrest. - Q6H progress notes to closely monitor maternal & status closely - continue to monitor for blood loss - QBL from delivery is still pending #PUI for COVID-19: - Patient & report travels for work & has recently travelled to both [place] & [place] & both have developed flu-like symptoms since his return home with cough & subjective fever. -Flu & COVID-19 swabs collected. Per nursing staff COVID-19 swab will not be sent off for testing until 06/10/19 when next batch will be taken to [place]. Droplet isolation precautions pending those results. Dispo: Stable, continue to monitor. Next recheck in 6 hours. Addendum - Attending - Attending Attestation Date/Time: 06/09/19 1392 I personally evaluated the patient and discussed the management with Dr. Watkins I agree with the History, Examination, Assessment and Plan documented above with any addition or exceptions noted below. HD#1 POD/PPD#0 24 yo now female admitted for bleeding placenta previa now s/p PLTCS at 31.6 wks. Patient still with some vaginal bleeding. Sam in place. Some bleeding on pad. Some bleeding collecting in bag. Good UOP. Pain controlled. Patient fatigued. Complains of some facial flushing. No other rash or symptoms. Tired. Elevated HR but regular rhythm Abdomen appropriately tender. Fundus firm. FROM x 4. No c/c/e. 1. s/p PLTCS: Continue routine pp care. Monitor pain control closely. 2. Previa: Significant bleeding. Approximately 500 mL on 06/08/19. 1200 mL on . 3. delivery: Delivery at 31.6 wks. [facility] for neuro protection provided. BMZ for FLM provided. 4. Severe PPH: MTP activited. s/p 5 units pRBC. 3 units FFP. Coag stable. No DIC. H&H stable. VSS. Sam in place. Slow removal after 24 hours. Continue ppx antibx for 24 hours at least. 5. Anxiety: Stable. 6. COVID19: Test pending. Flu negative. Continue isolation. 7. Varicella non-immune: Vaccine pp in clinic. Irlanda
[2019-06-09 16:12] LABS: ALT (SGPT) 9 U/L (8-55); AST (SGOT) 14 U/L (5-34); Alkaline Phosphatase 92 U/L (40-110); Bilirubin, Direct 0.1 mg/dL (0.1-0.3); Bilirubin, Total 0.4 mg/dL (0.2-1.2); Protein, Total 5.6 g/dL (6.0-8.3)
--- NOTE | 2019-06-09 16:53 | PDOC.EVN ---
Event Note - Event Note Event Note: Residents were paged for patient having vaginal bleeding after she was brought to R 7 after section for bleeding posterior placenta previa. Dr Hoang , Dr Mast and myself evaluated the patient and noted a large amount of vaginal clots evacuated from vagina and lower uterine segment. Her uterus was noted to be firm and bleed was thought to be coming from the lower uterine segment related to a placental bed bleed. At this point she had >2000ml QBL between prior to c/s and after delivery of placenta. On exam she was pale, cool and tachycardic. Mass transfusion protocol was called at 1052. During this she received 4U pRBCs, 3U FFP, Methergine x2, TXA x2. Initially Bakry Balloon attempt was unsuccessful, likely affected by patient intolerance. Patient was given Versed 0.5. Second Bakry Balloon was successfully placed with 480cc. DIC panel, CBC, PT/INR were ordered. She was started on Gentamicin & Clindamycin for concern she may develop endometrial infection from multiple vaginal exams. During this time patient was on isolation precautions for COVID-19 testing, amount of healthcare personal was limited to the necessary amount of people and PPE was worn. Attending Note: Agree with documentation above. Irlanda
[2019-06-09] MEDS: Docusate 100 MG CAP PO SCH ×2 (21:09→21:20)
[2019-06-09] MEDS: Ibuprofen 800 MG TAB PO SCH ×2 (21:09→22:10)
[2019-06-09] MEDS: Ferrous Sulfate 325 MG TAB PO SCH (21:09)
[2019-06-09] MEDS: Clindamycin/D5W 900 MG in Premix Bag 1 BAG IVPB SCH ×3 (21:17→22:00)
--- NOTE | 2019-06-09 23:02 | PDOC.BPN ---
<AndrewsKaren fariaslyn D - Last Filed: 06/09/19 23:01> - Brief Progress Note Patient is doing well. Drainage from bakri balloon since shift change has been 50mL. Pain is well controlled. Most recent temp was 99.2F. No complaints. Informed patient to not hesitate with any questions or concerns. <Luiz Hoanganda - Last Filed: 06/11/19 15:25> - Brief Progress Note HD#1 POD/PPD#0 24 yo now female admitted for bleeding placenta previa now s/p PLTCS at 31.6 wks. Patient remains stable. Reports pain controlled. Flushing of face resolved. Bleeding slowed. Pad dry. 50 mL in collection bag. Continues to have good UOP. Bandage intact and clean. 1. s/p PLTCS: Continue routine pp care. Monitor pain control closely. 2. Previa: Significant bleeding. Approximately 500 mL on 06/08/19. 1200 mL on . Risk for recurrance in the future. 3. delivery: Delivery at 31.6 wks. Mag for neuro protection provided. BMZ for FLM provided. No need for 17-OHP in the future. No evidence of labor throughout this course. 4. Severe PPH: MTP activited. s/p 5 units pRBC. 3 units FFP. Coag stable. No DIC. H&H stable. VSS. Sam in place. Slow removal after 24 hours. Continue ppx antibx for 24 hours at least. Continue PO iron. 5. Anxiety: Stable. 6. COVID19: Test pending. Flu negative. Continue isolation. 7. Varicella non-immune: Vaccine pp in clinic. 8. hx of recurrent miscarriage: D&C x 1. Irlanda
[2019-06-10 03:53] LABS: #Eosinphils 0.1 thou/uL (0.0-0.7); #Lymphocytes 3.1 thou/uL (1.20-3.40); #Monocytes 1.1 thou/uL (0.11-0.59); %Eosinophils 0.4 % (0.0-10.0); %Lymphocytes 17.8 % (21.0-51.0); %Monocytes 6.5 % (0.0-10.0); %Neutrophils 75.3 % (42.0-75.0); Hemoglobin 10.4 g/dL (12.0-16.0); Mean Corpuscular HGB CONC 34.9 g/dL (32.0-36.0); Mean Corpuscular Volume 83.3 fL (78.0-98.0); Mean Platelet Volume 10.8 fL (7.4-10.4); Platelet Count 135 thou/uL (130-400); RBC Distribution Width 15.3 % (11.5-14.5); Red Blood Cell (RBC) Count 3.59 mill/uL (4.20-5.40); White Blood Cell (WBC) Count 17.3 thou/uL (4.8-10.8)
[2019-06-10 04:16] LABS: ALT (SGPT) 11 U/L (8-55); AST (SGOT) 20 U/L (5-34); Albumin 2.9 g/dL (3.5-5.0); Alkaline Phosphatase 74 U/L (40-110); Anion Gap 11 mmol/L (10-20); BUN (Urea Nitrogen) 5 mg/dL (7.0-18.7); Bilirubin, Total 0.5 mg/dL (0.2-1.2); Calc. Creatinine Clearance 229 mL/min (70-130); Calcium 7.7 mg/dL (7.8-10.44); Carbon Dioxide 21 mmol/L (22-29); Chloride 108 mmol/L (98-107); Estimated GFR-MDRD Greater than 90; Globulin 2.4 g/dL (2.4-3.5); Glucose 113 mg/dL (70-105); Potassium 4.2 mmol/L (3.5-5.1); Protein, Total 5.3 g/dL (6.0-8.3); Sodium 136 mmol/L (136-145)
[2019-06-10] MEDS: Clindamycin/D5W 900 MG in Premix Bag 1 BAG IVPB SCH ×2 (06:00→13:54)
[2019-06-10] MEDS: Ibuprofen 800 MG TAB PO SCH ×2 (06:04→18:20)
--- NOTE | 2019-06-10 06:05 | PDOC.PP ---
Post Progress Note Post Day #: 1 Subjective: Minimal VB overnight. Denies pain, SOB, weakness, lightheadedness. Cough improving. VSS. Desires to breastfeed, reports not producing milk. PO intake tolerated: yes Weight Weight 80 kg - Physical Examination General: NAD Cardiovascular: no m/r/g, RRR Respiratory: clear to auscultation bilaterally Abdominal: + bowel sounds, appropriately TTP Skin: CS incision dry & intact Neurological: no gross focal deficits Psychiatric: A&Ox3, normal affect Result Diagrams: 06/10/19 03:34 06/10/19 03:34 Additional Labs: Post Labs Blood Type AB POSITIVE 06/08/19 11:13 Hep Bs Antigen Non-Reactive S/CO (NonReactive) 06/08/19 11:13 - Assessment/Plan POD #1 from pLTCS for bleeding placenta previa - No able to eat or ambulate yet due to bakry balloon in place. Will begin to deflate at 24hrs, 1030 this AM. PPH - QBL: 3025 total - VSS - Bakry balloon in place with minimal blood loss around balloon. - s/p Methergine x2, TXA x2. 4U pRBCs & 3U FFP. - Worked up for DIC, INR normal other levels elevated. Platelets improving - AM H&H: 10.4/29.9 PUI for COVID-19: - with recent travel, both with flu like symptoms subjective fever. - Afebrile here - COVID-19 swab sent off today. Continue isolation precautions - Tessalon perls for cough h/o rcurrent SAB w/ neg APS workup - ASA and lovenox stopped at admission Varicella nonimmune - PP vaccination Addendum - Attending - Attending Attestation Date/Time: 06/10/19 1146 I personally evaluated the patient and discussed the management with Dr. Jaeger I agree with the History, Examination, Assessment and Plan documented above with any addition or exceptions noted below - Patient denies complaints. Pain well controlled. Tolerating sips of juice/tea. Denies any SOB. Afebrile VSS A/P : 1) POD#1 s/p 1* for previa - H/H stable; continue current care. Advance diet. 2) Hemorrhage - H/H stable; Bakri balloon removed; continue to monitor closely. 3) COVID (+) - symptoms mild; continue to monitor.
--- NOTE | 2019-06-10 08:43 | OP ---
DATE OF PROCEDURE: 06/09/2019 ADDENDUM: I was present and scrubbed to assist the emergent low-transverse for hemorrhage related to placenta previa. Please see the note by Dr. Hoang for full details. Job ID: [id number] MTDD
[2019-06-10] MEDS: Ferrous Sulfate 325 MG TAB PO SCH ×2 (13:50→21:31)
[2019-06-10] MEDS: Prenatal Vitamin 1 TAB PO SCH (13:50)
[2019-06-10] MEDS: Docusate 100 MG CAP PO SCH ×2 (18:19→21:31)
[2019-06-10] MEDS: Polyethylene Glycol 3350 17 GM Packet PO SCH (18:19)
--- NOTE | 2019-06-10 21:44 | EKG ---
Test Reason : RESIDENT Blood Pressure : / mmHG Vent. Rate : 128 BPM Atrial Rate : 128 BPM P-R Int : 122 ms QRS Dur : 082 ms QT Int : 332 ms P-R-T Axes : 028 014 010 degrees QTc Int : 484 ms Sinus tachycardia Nonspecific T wave abnormality Abnormal ECG No previous ECGs available Confirmed by DR. Inocencia CASAS MD ([id number]) on 06/10/2019 9:44:42 PM Referred By: FAWN Confirmed By:DR. Inocencia CASAS MD
[2019-06-11] MEDS: Ibuprofen 800 MG TAB PO SCH ×2 (00:14→16:59)
[2019-06-11 06:01] LABS: #Eosinphils 0.2 thou/uL (0.0-0.7); #Lymphocytes 3.8 thou/uL (1.20-3.40); #Monocytes 1.1 thou/uL (0.11-0.59); #Neutrophils 10.7 thou/uL (1.40-6.50); %Basophils 0.1 % (0.0-1.0); %Eosinophils 1.4 % (0.0-10.0); %Lymphocytes 24.3 % (21.0-51.0); %Monocytes 6.6 % (0.0-10.0); %Neutrophils 67.6 % (42.0-75.0); Hemoglobin 10.4 g/dL (12.0-16.0); Mean Corpuscular HGB CONC 34.8 g/dL (32.0-36.0); Mean Corpuscular Volume 83.2 fL (78.0-98.0); Mean Platelet Volume 10.5 fL (7.4-10.4); Platelet Count 128 thou/uL (130-400); RBC Distribution Width 15.8 % (11.5-14.5); White Blood Cell (WBC) Count 15.8 thou/uL (4.8-10.8)
--- NOTE | 2019-06-11 13:20 | PDOC.PP ---
Post Progress Note Post Day #: 2 Subjective: Patient denies complaints. Tolerating po. (+) flatus. PO intake tolerated: yes Flatus: yes Ambulation: yes Weight Weight 80 kg - Physical Examination General: NAD Cardiovascular: no m/r/g, RRR Respiratory: clear to auscultation bilaterally, non-labored breathing Abdominal: no distention, appropriately TTP Fundus firm & at: umbilicus Skin: CS incision dry & intact Psychiatric: A&Ox3, normal affect Result Diagrams: 06/11/19 05:47 06/10/19 03:34 Additional Labs: Post Labs Blood Type AB POSITIVE 06/08/19 11:13 Hep Bs Antigen Non-Reactive S/CO (NonReactive) 06/08/19 11:13 - Assessment/Plan A/P: 1) POD#2 s/p 1* LCT C/S - d/c lazo; advance diet and encourage ambulation in room. Change to po pain medications 2) Anemia secondary to acute blood loss from placenta previa and hemorrhage- H/H stable; d/c daily lab draws; continue iron supplementation. 3) COVID -19- symptoms improved; continue isolation
[2019-06-11] MEDS ORDERED: HYDROcodone/Acetaminophen 5/325 mg Tablet PO PRN (13:37)
--- NOTE | 2019-06-11 15:32 | PDOC.OPDEL ---
OB Operative/Delivery Note Delivery Dr/Surgeon: Adwoa Hoang MD Assist: Mony Mast MD, Dasha Jaeger MD - Additional Findings/Plan Compilations/Other Findings: Date of Procedure: 06/09/19 Primary Surgeon: Adwoa Hoang MD Director Of Instruction Surgeon: Mony Mast MD, Dasha Jaeger MD Preoperative Diagnosis: 1. Gonzalez IUP at 31.6 wks by LMP/9.1 wk sono 2. Posterior Placenta Previa with hemorrhage 3. COVIS 19 rule out 4. Hx of recurrent miscarriage 5. 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 Varicella nonimmune 7. Anxiety with panic attacks 8. Vulvovaginal beronica 9. Hx of consanguinity with FOB 10. Normocytic anemia 11. GBS carrier Postoperative Diagnosis: 1. Gonzalez IUP at 31.6 wks by LMP/9.1 wk sono 2. Posterior Placenta Previa with hemorrhage 3. COVIS 19 rule out 4. Hx of recurrent miscarriage 5. 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 Varicella nonimmune 7. Anxiety with panic attacks 8. Vulvovaginal beronica 9. Hx of consanguinity with FOB 10. Normocytic anemia 11. GBS carrier Procedure Performed: 1. Primary low transverse section 2. RBC transfusion Anesthesia: General Indications for the Procedure: Ms. Luna is a 24 yo female at 31.6 wks by LMP/9.1 wk sono admitted on for vaginal bleeding. complicated by posterior previa. Approximately 500 mL sentinal bleed on day of admission. Initially placed on mag for neuro protection. BMZ given for lung maturity. Patient and fetus remained stable overnight. Mag stopped due to no indication for delivery or labor after 6 hours. At approximately 0815 on 06/09/19 patient started to have significant vaginal bleeding. tracing was stable. Maternal vitals were stable. Bed side sono indicating movement and cardiac activity. Emergent section called. Patient noted to have lost 1200 mL. RBC transfusion started once arrival to OR. Surgical risks: The patient was informed of the risk and benefits of the procedure. Risks included but were not limited to bleeding, infection, injury to internal organs , and possible hysterectomy. The patient expressed understanding of the risks involved. All questions were answered and the patient consented to the procedure. Description of the procedure: The patient was taken to the operating room where a time out was performed to confirm correct patient and correct procedure. General anesthesia was adequately established and prophylactic IV antibiotics were administered. The patient was then placed in the dorsal supine position with a left tilt of the hips. Pressure points were padded. A Bovie grounding pad was placed on the patients right lower extremity. A Aviles catheter was placed to monitor urine output during the case. A Marizol hugger was placed to maintain control of core body temperature. The patient was then prepped and draped in the usual sterile fashion for a Pfannensteil skin incision. An incision was made in the skin with a surgical scalpel and sharp and blunt dissection was carried out over the subsequent layers of tissue including the fascia. The fascia was incised at the midline. The fascial incision was extended bilaterally using blunt dissection. The superior edge of the fascial incision was grasp with Annita clamps, tented up and the underlying rectus muscles were dissected off bluntly and sharply using curved Adler scissors. Attention was then turned to the inferior edge, which was grasped with Annita clamps, tented up and the underlying rectus muscles were dissected off bluntly. The rectus muscles were then divided at midline. The peritoneum was identified and bluntly entered at its superior margin taking care to avoid the bladder. The peritoneal incision was extended using blunt dissection with good visualization of the bladder and bowel. A bladder blade and Harp retractor were inserted. A transverse incision was made in the lower uterine segment using the scalpel. The uterine incision was extended cranial/caudal using blunt dissection. The amniotic sac was entered bluntly and the amniotic fluid was noted to be clear. My right hand was placed into the uterine cavity. The head was identified , elevated into the abdomen and delivered through the uterine incision with the assistance of fundal pressure. The infant was examined for a nuchal cord. No nuchal cord was identified. The was then delivered with traction and the assistance of fundal pressure. Cry was noted with delivery. The umbilical cord was miked x 3. The cord was clamped and cut. The infant was then passed off the table to the awaiting asael team for further care. Cord blood were collected for routine analysis. The placenta delivered spontaneously/expressed intact with three-vessel cord. Oxytocin was administered by IV infusion to enhance uterine contractions. The uterus was exteriorized and cleared of all clots and remaining products of conception. The uterine incision was reapproximated using 0 Monocryl in a running locked fashion. One non-hemostatic area was reinforced using 0 Monocryl suture in a [id number] stitche. Some gentle oozing was noted to incision. Arixtra was used. Good hemostasis was confirmed. The abdomen was evaluated, suctioned and cleared of visible clots. The uterus was replaced into the abdomen and the pericolic gutter were cleared of all clots. The peritoneum was reapproximated using 3-0 Vicryl in a running non- locked fashion. The fascia was reapproximated using 0 PDS in a running non- locked fashion. Fascia and surrounding tissue was irrigated with warm NS followed by Bovie electrocautery for non-hemostatic areas. The subcuticular tissue was reapproximated using 3-0 Plain Gut in simple interrupted. The skin was reapproximated using 4-0 Monocryl. Dermabond along with a pressure dressing were placed at the end of the case. All needle, sponge, and instrument counts were noted to be correct x 3 at the end of the procedure. The patient tolerated the procedure well and was transferred to the recovery room in stable condition. Qualitative Blood Loss: 935 mL Findings: Viable Male delivered at 0850. scores of 8 and 9 at one and five minutes, respectively. Normal appearing uterus, ovaries, and fallopian tubes bilaterally. Intact placenta with 3VC. Sent to pathology for review. Complications: None Disposition: Routine recovery in negative pressure isolation room.
[2019-06-11] MEDS: Docusate 100 MG CAP PO SCH (15:51)
[2019-06-11] MEDS: Polyethylene Glycol 3350 17 GM Packet PO SCH (15:52)
[2019-06-11] MEDS: Ferrous Sulfate 325 MG TAB PO SCH (15:52)
[2019-06-11] MEDS: Prenatal Vitamin 1 TAB PO SCH (15:53)
[2019-06-11 16:38] VITALS: BP 96/59
[2019-06-11] MEDS ORDERED: guaiFENesin 100 MG/5 ML UDCUP PO PRN (20:20)
[2019-06-11] MEDS: Acetaminophen 325 MG TAB PO PRN (20:58)
[2019-06-11] MEDS: Benzonatate 100 MG CAP PO PRN (20:58)
[2019-06-11 22:22] LABS: Chlamydia by PCR Inconclusive (NotDetected); GC by PCR Inconclusive (NotDetected)
[2019-06-12 06:05] LABS: #Eosinphils 0.1 thou/uL (0.0-0.7); #Lymphocytes 2.9 thou/uL (1.20-3.40); #Monocytes 1.1 thou/uL (0.11-0.59); %Basophils 0.2 % (0.0-1.0); %Eosinophils 0.9 % (0.0-10.0); %Lymphocytes 20.4 % (21.0-51.0); %Monocytes 7.7 % (0.0-10.0); %Neutrophils 70.8 % (42.0-75.0); Mean Corpuscular HGB CONC 34.6 g/dL (32.0-36.0); Mean Corpuscular Hemoglobin 29.1 pg (27.0-31.0); Mean Corpuscular Volume 84.1 fL (78.0-98.0); Mean Platelet Volume 9.6 fL (7.4-10.4); Platelet Count 131 thou/uL (130-400); RBC Distribution Width 15.8 % (11.5-14.5); Red Blood Cell (RBC) Count 3.78 mill/uL (4.20-5.40); White Blood Cell (WBC) Count 14.2 thou/uL (4.8-10.8)
[2019-06-12 06:26] VITALS: TEMP 98.4
[2019-06-12] MEDS ORDERED: Diabetic Tussin 200 MG/10 ML UDCUP PO PRN (08:15)
[2019-06-12] MEDS: Benzonatate 100 MG CAP PO PRN (08:31)
[2019-06-12] MEDS ORDERED: Ibuprofen 600 MG TAB PO PRN (09:54)
--- NOTE | 2019-06-12 10:23 | RAD ---
XR Chest 1 View Portable HISTORY: 24-year-old lady with Fever, cough, Covid-19 positive COMPARISON: None FINDINGS: The heart size is normal. The lungs are well expanded without focal areas of consolidation, pneumothorax or pleural effusions. IMPRESSION: No radiographic evidence of acute cardiopulmonary process.
[2019-06-12 13:30] LABS: Bilirubin Negative (Negative); Blood, Urine Large (Negative); Glucose, Urine (Dipstick) Negative (Negative); Leukocyte Small (Negative); Nitrite Negative (Negative); Protein, Urine (Dipstick) 30 mg/dL (Neg-Trace); Urobilinogen 0.2 mg/dL (Less than 2)
[2019-06-12 13:31] LABS: Clarity Cloudy (Clear)
[2019-06-12 13:36] LABS: Bacteria/HPF None Seen HPF (None Seen); RBC/HPF Greater than 50 HPF (0-3); Squamous Epithelial 0-3 HPF (0-3); Transitional Epithelial 0-3 HPF (None Seen)
[2019-06-12 13:38] LABS: Urine Culture Reflex Yes Yes
[2019-06-12] MEDS: Acetaminophen 325 MG TAB PO PRN (14:08)
== END 2019-06-12 19:30 | disposition home or self-care (01) | DRG 786 ==
LOC: L&D/OP 11:05 → L&D 16:07
PROVIDERS: ADMIT Obstetrics & Gynecology; ATTEND Obstetrics & Gynecology
PROC: 10D00Z1 Extraction of Products of Conception, Low, Open Approach (ICD-10-PCS; principal; 2019-06-09)
PROC: 0W3R7ZZ Control Bleeding in Genitourinary Tract, Via Natural or Artificial Opening (ICD-10-PCS; 2019-06-09)
PROC: 8E0ZXY6 Isolation (ICD-10-PCS; 2019-06-09)
PROC: 30233L1 Transfusion of Nonautologous Fresh Plasma into Peripheral Vein, Percutaneous Approach (ICD-10-PCS; 2019-06-09)
PROC: 30233N1 Transfusion of Nonautologous Red Blood Cells into Peripheral Vein, Percutaneous Approach (ICD-10-PCS; 2019-06-09)
PROC: 30233K1 Transfusion of Nonautologous Frozen Plasma into Peripheral Vein, Percutaneous Approach (ICD-10-PCS; 2019-06-09)
DX: O44.33 Partial placenta previa with hemorrhage, third trimester (principal); O60.14X0 Preterm labor third trimester with preterm delivery third trimester, not applicable or unspecified; O99.12 Other diseases of the blood and blood-forming organs and certain disorders involving the immune mechanism complicating childbirth; O98.82 Other maternal infectious and parasitic diseases complicating childbirth; O72.1 Other immediate postpartum hemorrhage; D62 Acute posthemorrhagic anemia; O98.52 Other viral diseases complicating childbirth; J98.8 Other specified respiratory disorders; B97.29 Other coronavirus as the cause of diseases classified elsewhere; D69.6 Thrombocytopenia, unspecified; O99.02 Anemia complicating childbirth; O99.344 Other mental disorders complicating childbirth; O99.284 Endocrine, nutritional and metabolic diseases complicating childbirth; B37.3 Candidiasis of vulva and vagina; O99.824 Streptococcus B carrier state complicating childbirth; E87.6 Hypokalemia; F41.0 Panic disorder [episodic paroxysmal anxiety]; Z3A.31 31 weeks gestation of pregnancy; Z37.0 Single live birth; Z79.82 Long term (current) use of aspirin; Z79.899 Other long term (current) drug therapy; Z84.3 Family history of consanguinity
CPT/HCPCS: 36415; 36430; 51702; 71045; 76815; 76819; 80048; 80053; 80076; 81001; 81003; 83735; 84484; 85025; 85027; 85049; 85060; 85300; 85362; 85379; 85384; 85610; 85730; 86140; 86780; 86850; 86900; 86901; 87077; 87081; 87086; 87186; 87340; 87480; 87491; 87510; 87591; 87660; 87804; 88307; 93005; 93010; 99285; J0690; J0702; J1100; J1580; J1940; J2175; J2210; J2250; J2270; J2405; J2590; J2704; J3010; J3475; J3490; J7070; P9016; P9059; U0001